=== PATIENT | female | born 1940 | race Caucasian/White ===

== ENCOUNTER 2017-11-21 16:49 | Inpatient (IN) | payer MEDICARE ==
[~2017-11-21] VITALS: Ht 162.6 cm; Wt 79.5 kg
[~2017-11-21 16:49] MED LIST: METO-408 PO
[2017-11-21] MEDS ORDERED: METOPROLOL TARTRATE 5 MG/5 ML VIAL IVP ONE (17:15)
[2017-11-21 17:18] LABS: BASOPHILS % (AUTO) 0.3 % (0.0-2.0); EOSINOPHILS % (AUTO) 0.1 % (1.0-6.0); HEMATOCRIT 40.7 % (36-46); HEMOGLOBIN 13.4 g/dL (12.0-16.0); LYMPHOCYTES # (AUTO) 0.9 K/uL (1.0-4.8); LYMPHOCYTES % (AUTO) 11.7 % (22.0-44.0); MEAN CORPUSCULAR HEMOGLOBIN 27.9 pg (26.0-34.0); MEAN CORPUSCULAR VOLUME 85 fL (80-100); MONOCYTES # (AUTO) 0.6 K/uL (0.1-1.0); MONOCYTES % (AUTO) 7.4 % (2.0-9.0); NEUTROPHILS # (AUTO) 6.5 K/uL (1.8-7.7); NEUTROPHILS % (AUTO) 80.5 % (40.0-70.0); PLATELET COUNT (AUTO) 196 K/uL (150-450); RED BLOOD CELL COUNT(AUTO) 4.81 MIL/uL (4.00-5.20); RED CELL DISTRIBUTION WIDTH 15.4 % (11.5-14.5)
[2017-11-21 17:27] LABS: ANION GAP 6 mmol/L (8-16); CALCIUM, TOTAL 8.7 mg/dL (8.8-10.5); CARBON DIOXIDE 30 mmol/L (22-29); CHLORIDE 108 mmol/L (98-107); GLOMERULAR FILTR. RATE CALC 40 mL/min (>60); GLUCOSE,RANDOM 104 mg/dL (70-110); POTASSIUM 4.7 mmol/L (3.5-5.1); SODIUM SERUM 144 mmol/L (136-145); UREA NITROGEN, BLOOD 24 mg/dL (7-18)
[2017-11-21 17:34] LABS: ALANINE AMINOTRANSFERASE 19 U/L (12-78); ALBUMIN 3.6 g/dL (3.4-5.0); ALKALINE PHOSPHATASE 107 U/L (46-116); ASPARTATE AMINOTRANSFERASE 18 U/L (15-37); BILIRUBIN,TOTAL 0.3 mg/dL (0.1-1.0); CREATINE KINASE, TOTAL 64 U/L (26-192); TOTAL PROTEIN, SERUM 7.3 g/dL (6.4-8.2)
[2017-11-21 17:35] LABS: B-TYPE NATRIURETIC PEPTIDE 433 pg/mL (0-100)
[2017-11-21] MEDS ORDERED: ONDANSETRON HCL 4 MG/2 ML VIAL IVP PRN (18:15)
[2017-11-21] MEDS ORDERED: ACETAMINOPHEN 325 MG TABLET PO PRN (18:15)
[2017-11-21] MEDS ORDERED: 0.9% SODIUM CHLORIDE 10 ML SYRINGE IVP PRN (18:15)
[2017-11-21 19:38] VITALS: BP 147/73
[2017-11-21 21:06] LABS: APPEARANCE,URINE CLOUDY (CLEAR); BILIRUBIN,URINE NEGATIVE (NEGATIVE); GLUCOSE, URINE (UA) NEGATIVE (NEGATIVE); KETONES,URINE NEGATIVE (NEGATIVE); LEUKOCYTE ESTERASE ,URINE TRACE (NEGATIVE); NITRATE,URINE NEGATIVE (NEGATIVE); OCCULT BLOOD,URINE NEGATIVE (NEGATIVE); PROTEIN,URINE NEGATIVE (NEGATIVE); UROBILINOGEN,URINE 0.2 mg/dL (<=1.0)
[2017-11-21] MEDS ORDERED: GABA-531 PO (21:07)
[2017-11-21] MEDS ORDERED: AMLO-511 PO (21:07)
[2017-11-21] MEDS ORDERED: LISI-661 PO (21:07)
[2017-11-21 21:16] LABS: BACTERIA,URINE Many /HPF (None Seen); RBC,URINE 0-2 /HPF (0-2); SQUAMOUS EPITHELIAL CELL,UR Few /LPF (None Seen)
[2017-11-21] MEDS ORDERED: IPRATROPIUM BROMIDE 0.5 MG/2.5 ML NEB SOLUTION NEB PRN (22:00)
[2017-11-21] MEDS ORDERED: ALBUTEROL SULFATE 2.5 MG/0.5 ML NEB SOLUTION NEB PRN (22:00)
[2017-11-21] MEDS: PROMETHAZINE HCL/CODEINE 6.25-10MG/5ML SYRUP UDCUP PO PRN (22:32)
[2017-11-21 23:58] VITALS: BP 143/69
[2017-11-22] VITALS (7 sets, daily range): BP systolic 111–158; BP diastolic 62–96
[2017-11-22] MEDS: HEPARIN SODIUM,PORCINE 5,000 UNITS/ML VIAL SQ SCH ×3 (00:32→16:12)
[2017-11-22] MEDS: METOPROLOL TARTRATE 5 MG/5 ML VIAL IVP PRN ×3 (00:33→14:32)
[2017-11-22] MEDS: CefTRIAXone SODIUM 1 GM in DEXTROSE 5%-WATER 10 ML IV SCH (00:33)
[2017-11-22 05:59] LABS: BASOPHILS % (AUTO) 0.1 % (0.0-2.0); EOSINOPHILS % (AUTO) 0.1 % (1.0-6.0); HEMOGLOBIN 14.5 g/dL (12.0-16.0); LYMPHOCYTES % (AUTO) 12.7 % (22.0-44.0); MEAN CORPUSCULAR HEMOGLOBIN 28.4 pg (26.0-34.0); MEAN CORPUSCULAR HGB CONC 33.8 G/dL (31.0-37.0); MEAN CORPUSCULAR VOLUME 84 fL (80-100); MONOCYTES # (AUTO) 0.4 K/uL (0.1-1.0); MONOCYTES % (AUTO) 5.4 % (2.0-9.0); NEUTROPHILS # (AUTO) 6.6 K/uL (1.8-7.7); NEUTROPHILS % (AUTO) 81.7 % (40.0-70.0); PLATELET COUNT (AUTO) 187 K/uL (150-450); RED BLOOD CELL COUNT(AUTO) 5.11 MIL/uL (4.00-5.20); RED CELL DISTRIBUTION WIDTH 15.3 % (11.5-14.5)
[2017-11-22] MEDS: PROMETHAZINE HCL/CODEINE 6.25-10MG/5ML SYRUP UDCUP PO PRN ×2 (06:37→20:49)
[2017-11-22 06:44] LABS: ALBUMIN 3.5 g/dL (3.4-5.0); BILIRUBIN,TOTAL 0.4 mg/dL (0.1-1.0); CALCIUM, TOTAL 8.9 mg/dL (8.8-10.5); CREATININE 1.15 mg/dL (0.60-1.30); POTASSIUM 4.4 mmol/L (3.5-5.1); TOTAL PROTEIN, SERUM 7.3 g/dL (6.4-8.2)
[2017-11-22] MEDS: AmLODIPine BESYLATE 5 MG TABLET PO SCH (08:11)
[2017-11-22] MEDS: METOPROLOL SUCCINATE 25 MG ER TABLET PO SCH (08:11)
[2017-11-22] MEDS: GABAPENTIN 300 MG CAPSULE PO SCH ×3 (08:11→20:49)
[2017-11-22] MEDS: LISINOPRIL 10 MG TABLET PO SCH (09:40)
[2017-11-22] MEDS: ACETAMINOPHEN 325 MG TABLET PO PRN ×2 (09:43→14:32)
[2017-11-23] MEDS: HEPARIN SODIUM,PORCINE 5,000 UNITS/ML VIAL SQ SCH ×4 (00:56→23:57)
[2017-11-23] MEDS: CefTRIAXone SODIUM 1 GM in DEXTROSE 5%-WATER 10 ML IV SCH ×2 (00:56→23:57)
[2017-11-23 04:10] VITALS: BP 141/88
[2017-11-23 06:28] LABS: BASOPHILS % (AUTO) 0.2 % (0.0-2.0); EOSINOPHILS % (AUTO) 0.1 % (1.0-6.0); HEMOGLOBIN 14.1 g/dL (12.0-16.0); LYMPHOCYTES % (AUTO) 15.9 % (22.0-44.0); MEAN CORPUSCULAR HEMOGLOBIN 28.2 pg (26.0-34.0); MEAN CORPUSCULAR HGB CONC 33.6 G/dL (31.0-37.0); MEAN CORPUSCULAR VOLUME 84 fL (80-100); MONOCYTES # (AUTO) 0.4 K/uL (0.1-1.0); MONOCYTES % (AUTO) 6.8 % (2.0-9.0); NEUTROPHILS # (AUTO) 4.8 K/uL (1.8-7.7); PLATELET COUNT (AUTO) 175 K/uL (150-450); RED CELL DISTRIBUTION WIDTH 15.1 % (11.5-14.5)
[2017-11-23 06:30] LABS: HEMOGLOBIN A1C 5.6 % (4.5-6.2)
[2017-11-23 06:39] LABS: CALCIUM, TOTAL 8.7 mg/dL (8.8-10.5); CHOL/HDL RATIO 3.6 (3.9-5.7); CREATININE 1.1 mg/dL (0.60-1.30); MAGNESIUM 2.2 mg/dL (1.80-2.40); POTASSIUM 4.1 mmol/L (3.5-5.1); THYROID STIMULATING HORMONE 2.08 uIU/mL (0.36-3.74)
[2017-11-23 07:40] VITALS: BP 132/82
[2017-11-23] MEDS: LISINOPRIL 10 MG TABLET PO SCH (08:21)
[2017-11-23] MEDS: AmLODIPine BESYLATE 5 MG TABLET PO SCH (08:21)
[2017-11-23] MEDS: METOPROLOL SUCCINATE 25 MG ER TABLET PO SCH (08:21)
[2017-11-23] MEDS: GABAPENTIN 300 MG CAPSULE PO SCH ×3 (08:21→21:07)
[2017-11-23] MEDS: PROMETHAZINE HCL/CODEINE 6.25-10MG/5ML SYRUP UDCUP PO PRN (08:28)
[2017-11-23 12:04] VITALS: BP 147/83
[2017-11-23] MEDS: METOPROLOL TARTRATE 5 MG/5 ML VIAL IVP PRN ×3 (12:44→23:58)
[2017-11-23 15:24] VITALS: BP 113/75
[2017-11-23 19:43] VITALS: BP 146/74
[2017-11-23] MEDS: METOPROLOL SUCCINATE 50 MG ER TABLET PO SCH (21:07)
[2017-11-23 23:07] VITALS: BP 139/67
[2017-11-24 04:08] VITALS: BP 139/96
[2017-11-24 06:55] LABS: ANION GAP 3 mmol/L (8-16); CALCIUM, TOTAL 8.7 mg/dL (8.8-10.5); CARBON DIOXIDE 34 mmol/L (22-29); CHLORIDE 107 mmol/L (98-107); CREATINE KINASE, TOTAL 40 U/L (26-192); CREATININE 1.21 mg/dL (0.60-1.30); GLOMERULAR FILTR. RATE CALC 43 mL/min (>60); GLUCOSE,RANDOM 99 mg/dL (70-110); POTASSIUM 5.1 mmol/L (3.5-5.1); SODIUM SERUM 144 mmol/L (136-145); UREA NITROGEN, BLOOD 22 mg/dL (7-18)
[2017-11-24 07:12] VITALS: BP 140/78
[2017-11-24 07:54] LABS: B-TYPE NATRIURETIC PEPTIDE 753 pg/mL (0-100)
[2017-11-24] MEDS: METOPROLOL SUCCINATE 50 MG ER TABLET PO SCH (08:39)
[2017-11-24] MEDS: HEPARIN SODIUM,PORCINE 5,000 UNITS/ML VIAL SQ SCH ×3 (08:39→23:47)
[2017-11-24] MEDS: GABAPENTIN 300 MG CAPSULE PO SCH ×3 (08:39→20:57)
[2017-11-24 11:10] VITALS: BP 134/68
[2017-11-24 15:34] VITALS: BP 132/74
[2017-11-24 19:36] VITALS: BP 129/92
[2017-11-24] MEDS: CARVEDILOL 25 MG TABLET PO SCH (20:57)
[2017-11-24] MEDS: ACETAMINOPHEN 325 MG TABLET PO PRN (21:00)
[2017-11-24] MEDS: PROMETHAZINE HCL/CODEINE 6.25-10MG/5ML SYRUP UDCUP PO PRN (23:47)
[2017-11-24] MEDS: CefTRIAXone SODIUM 1 GM in DEXTROSE 5%-WATER 10 ML IV SCH (23:47)
[2017-11-24 23:59] VITALS: BP 131/59
[2017-11-25 05:32] VITALS: BP 125/62
[2017-11-25 07:05] LABS: ANION GAP 7 mmol/L (8-16); CALCIUM, TOTAL 8.8 mg/dL (8.8-10.5); CARBON DIOXIDE 29 mmol/L (22-29); CHLORIDE 107 mmol/L (98-107); CREATINE KINASE, TOTAL 33 U/L (26-192); GLOMERULAR FILTR. RATE CALC 43 mL/min (>60); GLUCOSE,RANDOM 97 mg/dL (70-110); POTASSIUM 4.4 mmol/L (3.5-5.1); SODIUM SERUM 143 mmol/L (136-145); THYROID STIMULATING HORMONE 1.48 uIU/mL (0.36-3.74); UREA NITROGEN, BLOOD 26 mg/dL (7-18)
[2017-11-25 07:26] VITALS: BP 125/57
[2017-11-25 07:46] LABS: B-TYPE NATRIURETIC PEPTIDE 843 pg/mL (0-100)
[2017-11-25] MEDS: HEPARIN SODIUM,PORCINE 5,000 UNITS/ML VIAL SQ SCH ×2 (08:03→15:16)
[2017-11-25] MEDS: GABAPENTIN 300 MG CAPSULE PO SCH ×3 (08:04→20:24)
[2017-11-25] MEDS: CARVEDILOL 25 MG TABLET PO SCH ×2 (08:04→20:24)
[2017-11-25 11:12] VITALS: BP 130/68
[2017-11-25 15:36] VITALS: BP 132/76
[2017-11-25] MEDS: FUROSEMIDE 20 MG/2 ML VIAL IVP SCH (16:09)
[2017-11-25 19:42] VITALS: BP 123/73
[2017-11-25] MEDS: OXYGEN THERAPY IH SCH (20:18)
[2017-11-25] MEDS: PROMETHAZINE HCL/CODEINE 6.25-10MG/5ML SYRUP UDCUP PO PRN (23:17)
[2017-11-25 23:23] VITALS: BP 121/76
[2017-11-26] MEDS: CefTRIAXone SODIUM 1 GM in DEXTROSE 5%-WATER 10 ML IV SCH (00:29)
[2017-11-26] MEDS: FUROSEMIDE 20 MG/2 ML VIAL IVP SCH ×3 (00:30→21:00)
[2017-11-26] MEDS: HEPARIN SODIUM,PORCINE 5,000 UNITS/ML VIAL SQ SCH ×3 (00:30→16:23)
[2017-11-26 04:05] VITALS: BP 113/73
[2017-11-26 07:33] VITALS: BP 118/68
[2017-11-26] MEDS: OXYGEN THERAPY IH SCH ×2 (08:06→21:08)
[2017-11-26] MEDS: CARVEDILOL 25 MG TABLET PO SCH ×2 (08:18→21:08)
[2017-11-26] MEDS: GABAPENTIN 300 MG CAPSULE PO SCH ×3 (08:18→21:08)
[2017-11-26 14:05] VITALS: BP 101/43
[2017-11-26 21:00] VITALS: BP 104/68
[2017-11-26 23:30] VITALS: BP 106/70
[2017-11-27] VITALS (7 sets, daily range): BP systolic 99–128; BP diastolic 45–77
[2017-11-27] MEDS: CefTRIAXone SODIUM 1 GM in DEXTROSE 5%-WATER 10 ML IV SCH (01:02)
[2017-11-27] MEDS: HEPARIN SODIUM,PORCINE 5,000 UNITS/ML VIAL SQ SCH ×3 (01:02→16:28)
[2017-11-27 07:12] LABS: HEMATOCRIT 43.4 % (36-46); HEMOGLOBIN 14.4 g/dL (12.0-16.0); MEAN CORPUSCULAR HEMOGLOBIN 28.2 pg (26.0-34.0); MEAN CORPUSCULAR HGB CONC 33.2 G/dL (31.0-37.0); MEAN CORPUSCULAR VOLUME 85 fL (80-100); PLATELET COUNT (AUTO) 184 K/uL (150-450); RED BLOOD CELL COUNT(AUTO) 5.12 MIL/uL (4.00-5.20); RED CELL DISTRIBUTION WIDTH 14.9 % (11.5-14.5)
[2017-11-27 07:24] LABS: CALCIUM, TOTAL 8.8 mg/dL (8.8-10.5); CREATININE 1.85 mg/dL (0.60-1.30); POTASSIUM 4.6 mmol/L (3.5-5.1)
[2017-11-27] MEDS: FUROSEMIDE 20 MG/2 ML VIAL IVP SCH ×2 (08:18→20:09)
[2017-11-27] MEDS: OXYGEN THERAPY IH SCH ×2 (08:18→20:12)
[2017-11-27] MEDS: GABAPENTIN 300 MG CAPSULE PO SCH ×3 (08:18→20:10)
[2017-11-27] MEDS: CARVEDILOL 25 MG TABLET PO SCH ×3 (08:24→20:10)
[2017-11-27 08:41] LABS: BAND NEUTROPHILS % (MANUAL) 1 % (0-5); LYMPHOCYTES % (MANUAL) 19 % (22-44); MONOCYTES % (MANUAL) 2 % (2-9); SEGMENTED NEUTROPHILS % 78 % (40-70)
[2017-11-27] MEDS ORDERED: NITROGLYCERIN 0.4 MG SUBLINGUAL TABLET #25 SL PRN (15:30)
[2017-11-27] MEDS: ATORVASTATIN CALCIUM 40 MG TABLET PO SCH (16:19)
[2017-11-28] VITALS (16 sets, daily range): BP systolic 95–128; BP diastolic 49–77
[2017-11-28] MEDS: HEPARIN SODIUM,PORCINE 5,000 UNITS/ML VIAL SQ SCH ×4 (00:51→23:38)
[2017-11-28] MEDS: CefTRIAXone SODIUM 1 GM in DEXTROSE 5%-WATER 10 ML IV SCH ×2 (00:52→23:38)
[2017-11-28 01:10] LABS: APPEARANCE,URINE CLEAR (CLEAR); BILIRUBIN,URINE NEGATIVE (NEGATIVE); GLUCOSE, URINE (UA) NEGATIVE (NEGATIVE); KETONES,URINE NEGATIVE (NEGATIVE); LEUKOCYTE ESTERASE ,URINE NEGATIVE (NEGATIVE); NITRATE,URINE NEGATIVE (NEGATIVE); OCCULT BLOOD,URINE NEGATIVE (NEGATIVE); PH,URINE 5.5 (5.0-8.0); PROTEIN,URINE NEGATIVE (NEGATIVE); UROBILINOGEN,URINE 0.2 mg/dL (<=1.0)
[2017-11-28 01:25] LABS: BACTERIA,URINE Rare /HPF (None Seen); RBC,URINE 0-2 /HPF (0-2); SQUAMOUS EPITHELIAL CELL,UR Few /LPF (None Seen); WBC,URINE 0-2 /HPF (0-5)
[2017-11-28 06:38] LABS: BASOPHILS % (AUTO) 0.2 % (0.0-2.0); EOSINOPHILS % (AUTO) 0 % (1.0-6.0); HEMATOCRIT 41.4 % (36-46); HEMOGLOBIN 13.7 g/dL (12.0-16.0); LYMPHOCYTES # (AUTO) 0.8 K/uL (1.0-4.8); LYMPHOCYTES % (AUTO) 10.4 % (22.0-44.0); MEAN CORPUSCULAR HGB CONC 33.2 G/dL (31.0-37.0); MEAN CORPUSCULAR VOLUME 84 fL (80-100); MONOCYTES # (AUTO) 0.6 K/uL (0.1-1.0); MONOCYTES % (AUTO) 7.8 % (2.0-9.0); NEUTROPHILS # (AUTO) 6.6 K/uL (1.8-7.7); NEUTROPHILS % (AUTO) 81.6 % (40.0-70.0); PLATELET COUNT (AUTO) 158 K/uL (150-450); RED BLOOD CELL COUNT(AUTO) 4.91 MIL/uL (4.00-5.20); RED CELL DISTRIBUTION WIDTH 14.8 % (11.5-14.5)
[2017-11-28 06:51] LABS: ANION GAP 4 mmol/L (8-16); CALCIUM, TOTAL 8.4 mg/dL (8.8-10.5); CARBON DIOXIDE 33 mmol/L (22-29); CHLORIDE 104 mmol/L (98-107); CREATINE KINASE, TOTAL 51 U/L (26-192); CREATININE 1.66 mg/dL (0.60-1.30); GLOMERULAR FILTR. RATE CALC 30 mL/min (>60); GLUCOSE,RANDOM 91 mg/dL (70-110); POTASSIUM 5.2 mmol/L (3.5-5.1); SODIUM SERUM 141 mmol/L (136-145); UREA NITROGEN, BLOOD 54 mg/dL (7-18)
[2017-11-28] MEDS ORDERED: HEPARIN SODIUM 1000 UNITS/NS 1,000 ML ONE (07:50)
[2017-11-28] MEDS ORDERED: SODIUM BICARBONATE 50 MEQ/50 ML VIAL ONE (07:50)
[2017-11-28] MEDS ORDERED: LIDOCAINE HCL/PF 1% 30 ML VIAL ONE (07:50)
[2017-11-28] MEDS ORDERED: IOHEXOL 300 MG/ML 150 ML VIAL ONE (07:50)
[2017-11-28] MEDS ORDERED: DiphenhydrAMINE HCL 50 MG/ML VIAL IVP SCH (08:15)
[2017-11-28] MEDS ORDERED: ASPIRIN 325 MG TABLET PO SCH (08:15)
[2017-11-28] MEDS ORDERED: FentaNYL CITRATE-PF 100 MCG/2 ML VIAL ONE (08:34)
[2017-11-28] MEDS ORDERED: MIDAZOLAM HCL 2 MG/2 ML VIAL ONE (08:34)
[2017-11-28] MEDS: CARVEDILOL 25 MG TABLET PO SCH ×3 (09:00→20:41)
[2017-11-28] MEDS ORDERED: HEPARIN SODIUM 1000 UNITS/NS 1,000 ML IARTER ONE (09:14)
[2017-11-28] MEDS ORDERED: SODIUM CHLORIDE 0.9% 500 ML IV ONE (09:14)
[2017-11-28] MEDS ORDERED: FentaNYL CITRATE-PF 100 MCG/2 ML VIAL IVP ONE (09:15)
[2017-11-28] MEDS ORDERED: LIDOCAINE 1% 30 ML/SOD BICARB 8.4% 4 ML SQ ONE (09:15)
[2017-11-28] MEDS ORDERED: IOHEXOL 300 MG/ML 150 ML VIAL IARTER ONE (09:15)
[2017-11-28] MEDS ORDERED: MIDAZOLAM HCL 2 MG/2 ML VIAL IVP ONE (09:15)
[2017-11-28] MEDS: FUROSEMIDE 20 MG/2 ML VIAL IVP SCH ×2 (10:29→20:41)
[2017-11-28] MEDS: ATORVASTATIN CALCIUM 40 MG TABLET PO SCH (10:29)
[2017-11-28] MEDS: ACETAMINOPHEN 325 MG TABLET PO PRN (10:29)
[2017-11-28] MEDS: GABAPENTIN 300 MG CAPSULE PO SCH ×3 (10:29→20:41)
[2017-11-28] MEDS: OXYGEN THERAPY IH SCH (10:31)
[2017-11-28 13:08] LABS: GLUCOMETER DEV NAME(LOC) 5N 2S; GLUCOSE,POINT OF CARE 96 MG/DL (70-110)
[2017-11-29 04:49] VITALS: BP 120/59
[2017-11-29 06:29] LABS: BASOPHILS % (AUTO) 0.1 % (0.0-2.0); EOSINOPHILS % (AUTO) 0.1 % (1.0-6.0); HEMOGLOBIN 14.1 g/dL (12.0-16.0); LYMPHOCYTES # (AUTO) 0.8 K/uL (1.0-4.8); LYMPHOCYTES % (AUTO) 10.5 % (22.0-44.0); MEAN CORPUSCULAR HEMOGLOBIN 28.4 pg (26.0-34.0); MEAN CORPUSCULAR HGB CONC 33.7 G/dL (31.0-37.0); MEAN CORPUSCULAR VOLUME 84 fL (80-100); MONOCYTES # (AUTO) 0.5 K/uL (0.1-1.0); MONOCYTES % (AUTO) 6.8 % (2.0-9.0); NEUTROPHILS # (AUTO) 6.2 K/uL (1.8-7.7); NEUTROPHILS % (AUTO) 82.5 % (40.0-70.0); PLATELET COUNT (AUTO) 162 K/uL (150-450); RED BLOOD CELL COUNT(AUTO) 4.98 MIL/uL (4.00-5.20); RED CELL DISTRIBUTION WIDTH 14.7 % (11.5-14.5)
[2017-11-29 06:55] LABS: CALCIUM, TOTAL 8.7 mg/dL (8.8-10.5); CREATININE 1.55 mg/dL (0.60-1.30); MAGNESIUM 2.6 mg/dL (1.80-2.40); POTASSIUM 4.2 mmol/L (3.5-5.1)
[2017-11-29 07:49] VITALS: BP 143/61
[2017-11-29] MEDS: FUROSEMIDE 20 MG/2 ML VIAL IVP SCH (09:20)
[2017-11-29] MEDS: HEPARIN SODIUM,PORCINE 5,000 UNITS/ML VIAL SQ SCH (09:20)
[2017-11-29] MEDS: CARVEDILOL 25 MG TABLET PO SCH (09:21)
[2017-11-29] MEDS: ATORVASTATIN CALCIUM 40 MG TABLET PO SCH (09:21)
[2017-11-29] MEDS: GABAPENTIN 300 MG CAPSULE PO SCH (09:21)
[2017-11-29] MEDS: OXYGEN THERAPY IH SCH ×2 (09:24→09:41)
[2017-11-29 11:36] VITALS: BP 111/60
[2017-11-29] MEDS ORDERED: KDUR10 PO (11:57)
[2017-11-29] MEDS ORDERED: GABA-531 PO (11:58)
[2017-11-29] MEDS ORDERED: ASPI-1182 PO (11:58)
[2017-11-29] MEDS ORDERED: CARV12 PO (11:58)
[2017-11-29] MEDS ORDERED: FURO20 PO (11:58)
[2017-11-29 15:11] VITALS: BP 116/58
[2017-11-29 15:15] VITALS: BP 116/55
== END 2017-11-29 16:30 | disposition home or self-care (01) | DRG 286 ==
LOC: EMS 16:50 → 5S 18:23 → 5N 11-28 06:00
PROVIDERS: ADMIT Family Medicine; ATTEND Family Medicine
PROC: 4A023N8 Measurement of Cardiac Sampling and Pressure, Bilateral, Percutaneous Approach (ICD-10-PCS; principal; 2017-11-28)
PROC: B2111ZZ Fluoroscopy of Multiple Coronary Arteries using Low Osmolar Contrast (ICD-10-PCS; 2017-11-28)
PROC: B2151ZZ Fluoroscopy of Left Heart using Low Osmolar Contrast (ICD-10-PCS; 2017-11-28)
DX: I48.91 Unspecified atrial fibrillation (principal); I50.23 Acute on chronic systolic (congestive) heart failure; I42.0 Dilated cardiomyopathy; F03.90 Unspecified dementia, unspecified severity, without behavioral disturbance, psychotic disturbance, mood disturbance, and anxiety; I13.0 Hypertensive heart and chronic kidney disease with heart failure and stage 1 through stage 4 chronic kidney disease, or unspecified chronic kidney disease; I25.10 Atherosclerotic heart disease of native coronary artery without angina pectoris; M19.90 Unspecified osteoarthritis, unspecified site; N18.9 Chronic kidney disease, unspecified; Z87.440 Personal history of urinary (tract) infections; Z91.19 Patient's noncompliance with other medical treatment and regimen
CPT/HCPCS: 83036; 83735; 84443; 85007; 87086; 93005; 93306; 93460; 96374; 97116; 97162; 97530; 99285; J0696; J1200; J1644; J1940; J2250; J3010; J3490; J7060; Q9967

== ENCOUNTER 2017-12-11 08:50 | Inpatient (IN) | payer MEDICARE ==
[~2017-12-11] VITALS: Ht 160 cm; Wt 79.6 kg
[~2017-12-11 08:50] MED LIST changes: +ASPI-1182 PO; +CARV12 PO; +FURO20 PO; +GABA-531 PO; +KDUR10 PO; -METO-408 PO
[2017-12-11] MEDS ORDERED: OMEP20 PO (09:04)
[2017-12-11] MEDS ORDERED: B CO1TAB7 PO (09:04)
[2017-12-11] MEDS ORDERED: LISI-661 PO (09:04)
[2017-12-11] MEDS ORDERED: HYDR25TA PO (09:04)
[2017-12-11] MEDS ORDERED: AMLO-511 PO (09:04)
[2017-12-11] MEDS ORDERED: DONE5TAB5 PO (09:04)
[2017-12-11] MEDS ORDERED: METO25 PO (09:04)
[2017-12-11] MEDS ORDERED: ESOM20CA39 PO (09:04)
[2017-12-11] MEDS ORDERED: ASPI-989 PO (09:04)
[2017-12-11] MEDS ORDERED: DILTIAZEM HCL 5 MG/ML 5 ML VIAL IVP ONE ×2 (09:15→16:30)
[2017-12-11 09:51] LABS: BASOPHILS % (AUTO) 0.2 % (0.0-2.0); EOSINOPHILS % (AUTO) 0 % (1.0-6.0); HEMATOCRIT 40.9 % (36-46); HEMOGLOBIN 13.8 g/dL (12.0-16.0); LYMPHOCYTES # (AUTO) 0.6 K/uL (1.0-4.8); LYMPHOCYTES % (AUTO) 5.8 % (22.0-44.0); MEAN CORPUSCULAR HEMOGLOBIN 28.4 pg (26.0-34.0); MEAN CORPUSCULAR HGB CONC 33.7 G/dL (31.0-37.0); MEAN CORPUSCULAR VOLUME 84 fL (80-100); MONOCYTES # (AUTO) 0.6 K/uL (0.1-1.0); MONOCYTES % (AUTO) 5.4 % (2.0-9.0); NEUTROPHILS # (AUTO) 9.4 K/uL (1.8-7.7); PLATELET COUNT (AUTO) 167 K/uL (150-450); RED BLOOD CELL COUNT(AUTO) 4.85 MIL/uL (4.00-5.20)
[2017-12-11 09:53] LABS: NEUTROPHILS % (AUTO) 88.6 % (40.0-70.0)
[2017-12-11 09:57] LABS: ANION GAP 8 mmol/L (8-16); CALCIUM, TOTAL 8.5 mg/dL (8.8-10.5); CARBON DIOXIDE 29 mmol/L (22-29); CHLORIDE 110 mmol/L (98-107); CREATININE 1.19 mg/dL (0.60-1.30); GLOMERULAR FILTR. RATE CALC 44 mL/min (>60); GLUCOSE,RANDOM 107 mg/dL (70-110); POTASSIUM 4.3 mmol/L (3.5-5.1); SODIUM SERUM 147 mmol/L (136-145); UREA NITROGEN, BLOOD 16 mg/dL (7-18)
[2017-12-11 10:04] LABS: ALANINE AMINOTRANSFERASE 57 U/L (12-78); ALBUMIN 3.4 g/dL (3.4-5.0); ALKALINE PHOSPHATASE 102 U/L (46-116); ASPARTATE AMINOTRANSFERASE 55 U/L (15-37); BILIRUBIN,TOTAL 0.6 mg/dL (0.1-1.0); CREATINE KINASE, TOTAL 46 U/L (26-192); TOTAL PROTEIN, SERUM 7.2 g/dL (6.4-8.2)
[2017-12-11 10:05] LABS: PROTHROMBIN TIME 10.4 SEC (9.4-11.6)
[2017-12-11 10:16] LABS: B-TYPE NATRIURETIC PEPTIDE 1460 pg/mL (0-100)
[2017-12-11] MEDS ORDERED: FUROSEMIDE 40 MG/4 ML VIAL IVP ONE (10:30)
[2017-12-11] MEDS ORDERED: ONDANSETRON HCL 4 MG/2 ML VIAL IVP PRN (11:15)
[2017-12-11] MEDS ORDERED: ACETAMINOPHEN 325 MG TABLET PO PRN (11:15)
[2017-12-11] MEDS ORDERED: DILTIAZEM HCL 125 MG in DEXTROSE 5%-WATER 100 ML IV SCH (16:30)
[2017-12-11 17:28] VITALS: BP 174/94
[2017-12-11] MEDS: CARVEDILOL 25 MG TABLET PO SCH ×2 (18:24→21:59)
[2017-12-11] MEDS ORDERED: CARV12 PO (18:31)
[2017-12-11] MEDS ORDERED: FURO20 PO (18:31)
[2017-12-11 20:14] VITALS: BP 116/71
[2017-12-11] MEDS ORDERED: FUROSEMIDE 20 MG TABLET PO SCH (21:00)
[2017-12-11] MEDS: FUROSEMIDE 20 MG/2 ML VIAL IVP SCH (21:58)
[2017-12-11] MEDS: GABAPENTIN 300 MG CAPSULE PO SCH (22:00)
[2017-12-11] MEDS: DONEPEZIL HCL 5 MG TABLET PO SCH (22:10)
[2017-12-11 23:37] VITALS: BP 126/60
[2017-12-12 04:01] VITALS: BP 124/74
[2017-12-12 06:43] LABS: BASOPHILS % (AUTO) 0.2 % (0.0-2.0); EOSINOPHILS % (AUTO) 0.1 % (1.0-6.0); HEMATOCRIT 40.1 % (36-46); HEMOGLOBIN 13.5 g/dL (12.0-16.0); LYMPHOCYTES # (AUTO) 0.7 K/uL (1.0-4.8); LYMPHOCYTES % (AUTO) 9.8 % (22.0-44.0); MEAN CORPUSCULAR HEMOGLOBIN 28.5 pg (26.0-34.0); MEAN CORPUSCULAR HGB CONC 33.7 G/dL (31.0-37.0); MEAN CORPUSCULAR VOLUME 85 fL (80-100); MONOCYTES # (AUTO) 0.4 K/uL (0.1-1.0); MONOCYTES % (AUTO) 6.2 % (2.0-9.0); NEUTROPHILS % (AUTO) 83.7 % (40.0-70.0); PLATELET COUNT (AUTO) 148 K/uL (150-450); RED BLOOD CELL COUNT(AUTO) 4.74 MIL/uL (4.00-5.20); RED CELL DISTRIBUTION WIDTH 15.3 % (11.5-14.5)
[2017-12-12 06:57] LABS: CALCIUM, TOTAL 8.9 mg/dL (8.8-10.5); CREATININE 1.25 mg/dL (0.60-1.30); POTASSIUM 3.5 mmol/L (3.5-5.1)
[2017-12-12 07:10] VITALS: BP 139/64
[2017-12-12] MEDS: GABAPENTIN 300 MG CAPSULE PO SCH ×3 (08:52→20:36)
[2017-12-12] MEDS: OMEPRAZOLE 20 MG CAPSULE PO SCH (08:52)
[2017-12-12] MEDS: ACETAMINOPHEN 325 MG TABLET PO PRN (08:53)
[2017-12-12] MEDS: CARVEDILOL 25 MG TABLET PO SCH ×2 (08:53→20:36)
[2017-12-12] MEDS: FUROSEMIDE 20 MG/2 ML VIAL IVP SCH ×2 (08:53→20:36)
[2017-12-12] MEDS: ASPIRIN 81 MG CHEWABLE TABLET PO SCH (08:54)
[2017-12-12] MEDS: HEPARIN SODIUM,PORCINE 5,000 UNITS/ML VIAL SQ SCH ×3 (08:54→16:56)
[2017-12-12] MEDS ORDERED: GABAPENTIN 300 MG CAPSULE PO SCH (09:00)
[2017-12-12 11:10] VITALS: BP 115/49
[2017-12-12 15:12] VITALS: BP 117/55
[2017-12-12 19:51] VITALS: BP 127/73
[2017-12-12] MEDS: DONEPEZIL HCL 5 MG TABLET PO SCH (20:36)
[2017-12-12 23:06] VITALS: BP 120/67
[2017-12-13] MEDS: HEPARIN SODIUM,PORCINE 5,000 UNITS/ML VIAL SQ SCH ×4 (00:31→23:10)
[2017-12-13 04:30] VITALS: BP 113/68
[2017-12-13 06:45] LABS: BASOPHILS % (AUTO) 0.3 % (0.0-2.0); EOSINOPHILS % (AUTO) 0.1 % (1.0-6.0); HEMATOCRIT 41.7 % (36-46); HEMOGLOBIN 14.1 g/dL (12.0-16.0); LYMPHOCYTES # (AUTO) 0.9 K/uL (1.0-4.8); LYMPHOCYTES % (AUTO) 14.3 % (22.0-44.0); MEAN CORPUSCULAR HEMOGLOBIN 28.4 pg (26.0-34.0); MEAN CORPUSCULAR HGB CONC 33.8 G/dL (31.0-37.0); MEAN CORPUSCULAR VOLUME 84 fL (80-100); MONOCYTES # (AUTO) 0.4 K/uL (0.1-1.0); MONOCYTES % (AUTO) 6.5 % (2.0-9.0); NEUTROPHILS # (AUTO) 4.8 K/uL (1.8-7.7); NEUTROPHILS % (AUTO) 78.8 % (40.0-70.0); PLATELET COUNT (AUTO) 163 K/uL (150-450); RED BLOOD CELL COUNT(AUTO) 4.97 MIL/uL (4.00-5.20); RED CELL DISTRIBUTION WIDTH 15.1 % (11.5-14.5)
[2017-12-13 07:24] VITALS: BP 126/73
[2017-12-13 07:27] LABS: CALCIUM, TOTAL 8.4 mg/dL (8.8-10.5); CHOL/HDL RATIO 4.1 (3.9-5.7); CREATININE 1.46 mg/dL (0.60-1.30); MAGNESIUM 2.1 mg/dL (1.80-2.40); POTASSIUM 3.6 mmol/L (3.5-5.1)
[2017-12-13] MEDS: GABAPENTIN 300 MG CAPSULE PO SCH ×3 (08:14→20:13)
[2017-12-13] MEDS: CARVEDILOL 25 MG TABLET PO SCH ×2 (08:14→20:15)
[2017-12-13] MEDS: FUROSEMIDE 20 MG/2 ML VIAL IVP SCH (08:14)
[2017-12-13] MEDS: ASPIRIN 81 MG CHEWABLE TABLET PO SCH (08:14)
[2017-12-13] MEDS: OMEPRAZOLE 20 MG CAPSULE PO SCH (08:14)
[2017-12-13] MEDS: ACETAMINOPHEN 325 MG TABLET PO PRN (09:52)
[2017-12-13 11:17] VITALS: BP 101/55
[2017-12-13 14:33] VITALS: BP 94/55
[2017-12-13 19:25] VITALS: BP 97/66
[2017-12-13] MEDS: DONEPEZIL HCL 5 MG TABLET PO SCH (20:13)
[2017-12-13 23:17] VITALS: BP 119/75
[2017-12-14] MEDS: ACETAMINOPHEN 325 MG TABLET PO PRN ×2 (03:58→16:48)
[2017-12-14 04:07] VITALS: BP 127/66
[2017-12-14 07:36] VITALS: BP 117/68
[2017-12-14] MEDS: OMEPRAZOLE 20 MG CAPSULE PO SCH (08:24)
[2017-12-14] MEDS: CARVEDILOL 25 MG TABLET PO SCH ×2 (08:24→20:33)
[2017-12-14] MEDS: ASPIRIN 81 MG CHEWABLE TABLET PO SCH (08:24)
[2017-12-14] MEDS: HEPARIN SODIUM,PORCINE 5,000 UNITS/ML VIAL SQ SCH ×3 (08:25→23:50)
[2017-12-14] MEDS: GABAPENTIN 300 MG CAPSULE PO SCH ×3 (08:25→20:34)
[2017-12-14] MEDS: FUROSEMIDE 40 MG/4 ML VIAL IVP SCH (08:25)
[2017-12-14 11:47] VITALS: BP 101/60
[2017-12-14 15:46] LABS: CREATINE KINASE, TOTAL 37 U/L (26-192)
[2017-12-14 16:38] VITALS: BP 109/86
[2017-12-14 19:18] VITALS: BP 116/65
[2017-12-14] MEDS: DONEPEZIL HCL 5 MG TABLET PO SCH (20:34)
[2017-12-14] MEDS: FUROSEMIDE 20 MG/2 ML VIAL IVP SCH (20:34)
[2017-12-15] VITALS: BP 122/76
[2017-12-15 04:00] VITALS: BP 108/74
[2017-12-15 07:28] VITALS: BP 124/75
[2017-12-15] MEDS: HEPARIN SODIUM,PORCINE 5,000 UNITS/ML VIAL SQ SCH ×2 (08:13→16:25)
[2017-12-15] MEDS: FUROSEMIDE 40 MG/4 ML VIAL IVP SCH (08:14)
[2017-12-15] MEDS: OMEPRAZOLE 20 MG CAPSULE PO SCH (08:14)
[2017-12-15] MEDS: GABAPENTIN 300 MG CAPSULE PO SCH ×3 (08:14→20:25)
[2017-12-15] MEDS: ACETAMINOPHEN 325 MG TABLET PO PRN (08:14)
[2017-12-15] MEDS: CARVEDILOL 25 MG TABLET PO SCH ×2 (08:14→20:25)
[2017-12-15] MEDS: ASPIRIN 81 MG CHEWABLE TABLET PO SCH (08:14)
[2017-12-15] MEDS: FUROSEMIDE 20 MG/2 ML VIAL IVP SCH (08:15)
[2017-12-15 11:24] VITALS: BP 108/56
[2017-12-15] MEDS ORDERED: MAGNESIUM HYDROXIDE SUSPENSION 30 ML UDCUP PO PRN (13:30)
[2017-12-15 15:34] VITALS: BP 121/67
[2017-12-15 19:11] VITALS: BP 125/56
[2017-12-15] MEDS: DONEPEZIL HCL 5 MG TABLET PO SCH (20:25)
[2017-12-16] VITALS (7 sets, daily range): BP systolic 104–145; BP diastolic 55–77
[2017-12-16] MEDS: HEPARIN SODIUM,PORCINE 5,000 UNITS/ML VIAL SQ SCH ×4 (00:32→23:55)
[2017-12-16 06:38] LABS: CALCIUM, TOTAL 8.7 mg/dL (8.8-10.5); CREATININE 1.52 mg/dL (0.60-1.30); MAGNESIUM 2.5 mg/dL (1.80-2.40); POTASSIUM 4.3 mmol/L (3.5-5.1)
[2017-12-16] MEDS: FUROSEMIDE 40 MG/4 ML VIAL IVP SCH (08:31)
[2017-12-16] MEDS: OMEPRAZOLE 20 MG CAPSULE PO SCH (08:38)
[2017-12-16] MEDS: GABAPENTIN 300 MG CAPSULE PO SCH ×3 (08:38→21:11)
[2017-12-16] MEDS: ASPIRIN 81 MG CHEWABLE TABLET PO SCH (08:38)
[2017-12-16] MEDS: CARVEDILOL 25 MG TABLET PO SCH ×2 (08:38→21:11)
[2017-12-16] MEDS: DONEPEZIL HCL 5 MG TABLET PO SCH (21:11)
[2017-12-17] VITALS (9 sets, daily range): BP systolic 98–145; BP diastolic 55–78
[2017-12-17] MEDS: HEPARIN SODIUM,PORCINE 5,000 UNITS/ML VIAL SQ SCH ×3 (08:00→23:41)
[2017-12-17] MEDS: FUROSEMIDE 40 MG/4 ML VIAL IVP SCH (08:17)
[2017-12-17] MEDS ORDERED: BENZOCAINE 20% 50 MCG/SPRAY 57 GM ONE (09:26)
[2017-12-17] MEDS: CARVEDILOL 25 MG TABLET PO SCH ×2 (12:21→20:23)
[2017-12-17] MEDS: ASPIRIN 81 MG CHEWABLE TABLET PO SCH (12:21)
[2017-12-17] MEDS: OMEPRAZOLE 20 MG CAPSULE PO SCH (12:21)
[2017-12-17] MEDS: GABAPENTIN 300 MG CAPSULE PO SCH ×3 (12:22→20:24)
[2017-12-17] MEDS: AMIODARONE HCL 200 MG TABLET PO SCH ×2 (16:11→23:41)
[2017-12-17] MEDS: DONEPEZIL HCL 5 MG TABLET PO SCH (20:24)
[2017-12-18 04:30] VITALS: BP 97/58
[2017-12-18] MEDS ORDERED: PROPOFOL 1% 20 ML VIAL IVP ONE (04:41)
[2017-12-18] MEDS ORDERED: LIDOCAINE HCL/PF 2% 5 ML VIAL IM ONE (04:41)
[2017-12-18] MEDS ORDERED: FentaNYL CITRATE-PF 100 MCG/2 ML VIAL IVP ONE (04:49)
[2017-12-18] MEDS ORDERED: MIDAZOLAM HCL 2 MG/2 ML VIAL IVP ONE (04:49)
[2017-12-18 07:30] VITALS: BP 100/43
[2017-12-18] MEDS: HEPARIN SODIUM,PORCINE 5,000 UNITS/ML VIAL SQ SCH ×2 (08:28→15:38)
[2017-12-18] MEDS: FUROSEMIDE 40 MG/4 ML VIAL IVP SCH (08:28)
[2017-12-18] MEDS: GABAPENTIN 300 MG CAPSULE PO SCH ×3 (10:02→21:28)
[2017-12-18] MEDS: ASPIRIN 81 MG CHEWABLE TABLET PO SCH (10:02)
[2017-12-18] MEDS: CARVEDILOL 25 MG TABLET PO SCH ×2 (10:02→17:40)
[2017-12-18] MEDS: OMEPRAZOLE 20 MG CAPSULE PO SCH (10:02)
[2017-12-18] MEDS: AMIODARONE HCL 200 MG TABLET PO SCH ×2 (10:02→21:32)
[2017-12-18 11:20] VITALS: BP 107/51
[2017-12-18] MEDS ORDERED: CARVEDILOL 12.5 MG TABLET PO ONE ×2 (12:45→17:30)
[2017-12-18] MEDS ORDERED: DIGOXIN 250 MCG/ML 2 ML AMP IVP ONE (14:00)
[2017-12-18] MEDS ORDERED: DIGOXIN 125 MCG TABLET PO ONE (15:00)
[2017-12-18 15:15] VITALS: BP 112/48
[2017-12-18] MEDS: DIGOXIN 250 MCG/ML 2 ML AMP IVP ONE ×2 (15:25→16:41)
[2017-12-18 20:17] VITALS: BP 105/45
[2017-12-18] MEDS: DONEPEZIL HCL 5 MG TABLET PO SCH (21:28)
[2017-12-19 00:01] VITALS: BP 122/44
[2017-12-19 04:10] VITALS: BP 124/57
[2017-12-19 06:31] LABS: BASOPHILS % (AUTO) 0.1 % (0.0-2.0); EOSINOPHILS % (AUTO) 0 % (1.0-6.0); HEMATOCRIT 41.4 % (36-46); HEMOGLOBIN 14.1 g/dL (12.0-16.0); LYMPHOCYTES # (AUTO) 0.4 K/uL (1.0-4.8); LYMPHOCYTES % (AUTO) 2.9 % (22.0-44.0); MEAN CORPUSCULAR HEMOGLOBIN 28.5 pg (26.0-34.0); MEAN CORPUSCULAR VOLUME 84 fL (80-100); MONOCYTES # (AUTO) 0.8 K/uL (0.1-1.0); MONOCYTES % (AUTO) 6.4 % (2.0-9.0); NEUTROPHILS # (AUTO) 11.2 K/uL (1.8-7.7); RED BLOOD CELL COUNT(AUTO) 4.94 MIL/uL (4.00-5.20); RED CELL DISTRIBUTION WIDTH 14.5 % (11.5-14.5)
[2017-12-19 06:53] LABS: NEUTROPHILS % (AUTO) 90.6 % (40.0-70.0)
[2017-12-19 06:55] LABS: CALCIUM, TOTAL 8.4 mg/dL (8.8-10.5); CREATININE 2.14 mg/dL (0.60-1.30); MAGNESIUM 2.4 mg/dL (1.80-2.40); POTASSIUM 4.6 mmol/L (3.5-5.1)
[2017-12-19] MEDS: HEPARIN SODIUM,PORCINE 5,000 UNITS/ML VIAL SQ SCH ×3 (08:02→16:17)
[2017-12-19] MEDS: GABAPENTIN 300 MG CAPSULE PO SCH ×3 (08:03→20:57)
[2017-12-19] MEDS: OMEPRAZOLE 20 MG CAPSULE PO SCH (08:03)
[2017-12-19] MEDS: ASPIRIN 81 MG CHEWABLE TABLET PO SCH (08:03)
[2017-12-19 08:09] VITALS: BP 94/48
[2017-12-19] MEDS: ACETAMINOPHEN 325 MG TABLET PO PRN (08:13)
[2017-12-19] MEDS ORDERED: SODIUM CHLORIDE 0.9% 500 ML IV ONE (08:30)
[2017-12-19] MEDS: FUROSEMIDE 40 MG/4 ML VIAL IVP SCH (08:48)
[2017-12-19] MEDS: CARVEDILOL 25 MG TABLET PO SCH ×2 (08:48→20:45)
[2017-12-19] MEDS: AMIODARONE HCL 200 MG TABLET PO SCH ×2 (08:48→20:45)
[2017-12-19 10:14] LABS: BASOPHILS % (AUTO) 0.2 % (0.0-2.0); EOSINOPHILS % (AUTO) 0 % (1.0-6.0); HEMOGLOBIN 13.3 g/dL (12.0-16.0); LYMPHOCYTES # (AUTO) 0.3 K/uL (1.0-4.8); LYMPHOCYTES % (AUTO) 2.3 % (22.0-44.0); MEAN CORPUSCULAR HEMOGLOBIN 27.8 pg (26.0-34.0); MEAN CORPUSCULAR HGB CONC 33.4 G/dL (31.0-37.0); MEAN CORPUSCULAR VOLUME 83 fL (80-100); MONOCYTES # (AUTO) 0.8 K/uL (0.1-1.0); MONOCYTES % (AUTO) 6.2 % (2.0-9.0); NEUTROPHILS # (AUTO) 11.3 K/uL (1.8-7.7); PLATELET COUNT (AUTO) 126 K/uL (150-450); RED BLOOD CELL COUNT(AUTO) 4.79 MIL/uL (4.00-5.20); RED CELL DISTRIBUTION WIDTH 14.9 % (11.5-14.5)
[2017-12-19 10:15] LABS: NEUTROPHILS % (AUTO) 91.3 % (40.0-70.0)
[2017-12-19 10:25] LABS: CREATININE 2.54 mg/dL (0.60-1.30); MAGNESIUM 2.3 mg/dL (1.80-2.40); POTASSIUM 4.5 mmol/L (3.5-5.1)
[2017-12-19 10:53] LABS: PLATELET COUNT (AUTO) 120 K/uL (150-450)
[2017-12-19 11:59] VITALS: BP 96/64
[2017-12-19 12:17] LABS: APPEARANCE,URINE TURBID (CLEAR); BILIRUBIN,URINE NEGATIVE (NEGATIVE); GLUCOSE, URINE (UA) NEGATIVE (NEGATIVE); KETONES,URINE NEGATIVE (NEGATIVE); LEUKOCYTE ESTERASE ,URINE LARGE (NEGATIVE); NITRATE,URINE NEGATIVE (NEGATIVE); OCCULT BLOOD,URINE MODERATE (NEGATIVE); PH,URINE 5.5 (5.0-8.0); PROTEIN,URINE POS 1+ (NEGATIVE)
[2017-12-19 12:26] LABS: BACTERIA,URINE Many /HPF (None Seen); MUCUS,URINE Few LPF (None Seen); SQUAMOUS EPITHELIAL CELL,UR Few /LPF (None Seen); WBC,URINE 51-100 /HPF (0-5)
[2017-12-19 15:44] VITALS: BP 92/35
[2017-12-19] MEDS: MIDODRINE HCL 5 MG TABLET PO SCH ×2 (18:44→20:57)
[2017-12-19] MEDS: CIPROFLOXACIN HCL 500 MG TABLET PO SCH (20:57)
[2017-12-19] MEDS: DONEPEZIL HCL 5 MG TABLET PO SCH (20:57)
[2017-12-19 21:03] VITALS: BP 84/46
[2017-12-20 00:27] VITALS: BP 82/56
[2017-12-20 05:16] VITALS: BP 94/46
[2017-12-20 07:18] LABS: BASOPHILS % (AUTO) 0.1 % (0.0-2.0); EOSINOPHILS % (AUTO) 0 % (1.0-6.0); HEMATOCRIT 38.5 % (36-46); HEMOGLOBIN 13.1 g/dL (12.0-16.0); LYMPHOCYTES # (AUTO) 0.4 K/uL (1.0-4.8); LYMPHOCYTES % (AUTO) 3.1 % (22.0-44.0); MEAN CORPUSCULAR HEMOGLOBIN 28.9 pg (26.0-34.0); MEAN CORPUSCULAR VOLUME 85 fL (80-100); MONOCYTES # (AUTO) 0.9 K/uL (0.1-1.0); MONOCYTES % (AUTO) 7.6 % (2.0-9.0); NEUTROPHILS # (AUTO) 10.9 K/uL (1.8-7.7); PLATELET COUNT (AUTO) 113 K/uL (150-450); RED BLOOD CELL COUNT(AUTO) 4.52 MIL/uL (4.00-5.20); RED CELL DISTRIBUTION WIDTH 14.6 % (11.5-14.5)
[2017-12-20 07:36] VITALS: BP 101/46
[2017-12-20 07:38] LABS: NEUTROPHILS % (AUTO) 89.2 % (40.0-70.0)
[2017-12-20 07:40] LABS: CREATININE 3.65 mg/dL (0.60-1.30); MAGNESIUM 2.6 mg/dL (1.80-2.40); POTASSIUM 4.8 mmol/L (3.5-5.1)
[2017-12-20] MEDS: HEPARIN SODIUM,PORCINE 5,000 UNITS/ML VIAL SQ SCH ×3 (08:35→16:49)
[2017-12-20] MEDS: OMEPRAZOLE 20 MG CAPSULE PO SCH (08:35)
[2017-12-20] MEDS: CARVEDILOL 25 MG TABLET PO SCH (08:35)
[2017-12-20] MEDS: ASPIRIN 81 MG CHEWABLE TABLET PO SCH (08:35)
[2017-12-20] MEDS: AMIODARONE HCL 200 MG TABLET PO SCH (08:35)
[2017-12-20] MEDS: FUROSEMIDE 40 MG/4 ML VIAL IVP SCH (08:35)
[2017-12-20] MEDS: GABAPENTIN 300 MG CAPSULE PO SCH ×2 (08:35→16:49)
[2017-12-20] MEDS: CIPROFLOXACIN HCL 500 MG TABLET PO SCH (08:35)
[2017-12-20] MEDS: MIDODRINE HCL 5 MG TABLET PO SCH ×2 (08:39→16:49)
[2017-12-20 11:23] VITALS: BP 100/50
[2017-12-20 15:26] VITALS: BP 105/60
[2017-12-20] MEDS ORDERED: AMIO200T44 PO (17:01)
[2017-12-20] MEDS ORDERED: CARV25 PO (17:03)
[2017-12-20] MEDS ORDERED: CIPR-278 PO (17:04)
[2017-12-20] MEDS ORDERED: FURO40 PO (17:04)
[2017-12-20] MEDS ORDERED: HEPA500041 SQ (17:05)
[2017-12-20] MEDS ORDERED: ACET-2247 PO (17:06)
[2017-12-20] MEDS ORDERED: MIDO5TAB23 PO (17:06)
[2017-12-20] MEDS ORDERED: MOM30 PO (17:08)
[2017-12-21] MEDS ORDERED: HEPA500018 SQ (17:53)
== END 2017-12-20 17:40 | DRG 291 ==
LOC: EMS 08:52 → 5N 15:19 → 5S 15:19 → UNDOADMIN 15:19
PROVIDERS: ADMIT Family Medicine; ATTEND Family Medicine
PROC: 5A2204Z Restoration of Cardiac Rhythm, Single (ICD-10-PCS; principal; 2017-12-17)
PROC: B246ZZ4 Ultrasonography of Right and Left Heart, Transesophageal (ICD-10-PCS; 2017-12-17)
DX: I13.0 Hypertensive heart and chronic kidney disease with heart failure and stage 1 through stage 4 chronic kidney disease, or unspecified chronic kidney disease (principal); I50.43 Acute on chronic combined systolic (congestive) and diastolic (congestive) heart failure; I48.91 Unspecified atrial fibrillation; I42.0 Dilated cardiomyopathy; F03.90 Unspecified dementia, unspecified severity, without behavioral disturbance, psychotic disturbance, mood disturbance, and anxiety; I25.10 Atherosclerotic heart disease of native coronary artery without angina pectoris; N18.9 Chronic kidney disease, unspecified; B96.4 Proteus (mirabilis) (morganii) as the cause of diseases classified elsewhere; Z91.19 Patient's noncompliance with other medical treatment and regimen; Z79.82 Long term (current) use of aspirin; Z79.899 Other long term (current) drug therapy; Z87.440 Personal history of urinary (tract) infections
CPT/HCPCS: 83735; 87086; 92960; 93005; 93312; 96374; 96375; 97110; 97116; 97161; 97166; 97530; 97535; 99291; J1160; J1644; J1940; J2250; J2704; J3010; J3490; J7040; J7060

== ENCOUNTER 2017-12-21 00:39 | Inpatient (IN) | payer MEDICARE ==
[~2017-12-21] VITALS: Ht 160 cm; Wt 80.2 kg
[~2017-12-21 00:39] MED LIST changes: +ACET-2247 PO; +AMIO200T44 PO; -ASPI-1182 PO; +ASPI-989 PO; -CARV12 PO; +CARV25 PO; +CIPR-278 PO; +DONE5TAB5 PO; -FURO20 PO; +FURO40 PO; +HEPA500041 SQ; -KDUR10 PO; +MIDO5TAB23 PO; +MOM30 PO; +OMEP20 PO
[2017-12-21] MEDS ORDERED: 0.9% SODIUM CHLORIDE 10 ML SYRINGE IVP PRN ×3 (00:45→17:45)
[2017-12-21 00:58] LABS: GLUCOSE,POINT OF CARE 132 MG/DL (70-110)
[2017-12-21] MEDS ORDERED: ACETAMINOPHEN 1000 MG/ISO-OSM 100 ML IV ONE (01:15)
[2017-12-21] MEDS ORDERED: ALBUTEROL SULFATE 2.5 MG/0.5 ML NEB SOLUTION NEB ONE (01:15)
[2017-12-21] MEDS ORDERED: IPRATROPIUM BROMIDE 0.5 MG/2.5 ML NEB SOLUTION NEB ONE (01:15)
[2017-12-21 01:23] LABS: BASOPHILS % (AUTO) 0.1 % (0.0-2.0); EOSINOPHILS % (AUTO) 0 % (1.0-6.0); HEMATOCRIT 38.7 % (36-46); HEMOGLOBIN 12.7 g/dL (12.0-16.0); LYMPHOCYTES # (AUTO) 0.4 K/uL (1.0-4.8); LYMPHOCYTES % (AUTO) 3.9 % (22.0-44.0); MEAN CORPUSCULAR HEMOGLOBIN 27.6 pg (26.0-34.0); MEAN CORPUSCULAR HGB CONC 32.8 G/dL (31.0-37.0); MEAN CORPUSCULAR VOLUME 84 fL (80-100); MONOCYTES # (AUTO) 1.3 K/uL (0.1-1.0); MONOCYTES % (AUTO) 11.2 % (2.0-9.0); NEUTROPHILS # (AUTO) 9.8 K/uL (1.8-7.7); NEUTROPHILS % (AUTO) 84.8 % (40.0-70.0); PLATELET COUNT (AUTO) 135 K/uL (150-450); RED BLOOD CELL COUNT(AUTO) 4.58 MIL/uL (4.00-5.20); RED CELL DISTRIBUTION WIDTH 14.9 % (11.5-14.5)
[2017-12-21 01:31] LABS: APPEARANCE,URINE CLOUDY (CLEAR); GLUCOSE, URINE (UA) NEGATIVE (NEGATIVE); KETONES,URINE TRACE mg/dL (NEGATIVE); LEUKOCYTE ESTERASE ,URINE MODERATE (NEGATIVE); NITRATE,URINE NEGATIVE (NEGATIVE); OCCULT BLOOD,URINE LARGE (NEGATIVE); PH,URINE 5.5 (5.0-8.0); PROTEIN,URINE SEE CONFIRM (NEGATIVE)
[2017-12-21 01:31] LABS: SOURCE, BLOOD GAS ARTERIAL
[2017-12-21 01:32] LABS: BILIRUBIN,URINE PRELIM. POSITIVE (NEGATIVE)
[2017-12-21 01:33] LABS: ANION GAP 3 mmol/L (8-16); CALCIUM, TOTAL 7.7 mg/dL (8.8-10.5); CARBON DIOXIDE 31 mmol/L (22-29); CHLORIDE 101 mmol/L (98-107); CREATININE 4.67 mg/dL (0.60-1.30); GLOMERULAR FILTR. RATE CALC 9 mL/min (>60); GLUCOSE,RANDOM 138 mg/dL (70-110); POTASSIUM 5.4 mmol/L (3.5-5.1); SODIUM SERUM 135 mmol/L (136-145); UREA NITROGEN, BLOOD 81 mg/dL (7-18)
[2017-12-21 01:34] LABS: SULFOSALICYLIC ACID,URINE 1+ (Negative)
[2017-12-21 01:35] LABS: BACTERIA,URINE Many /HPF (None Seen)
[2017-12-21 01:39] LABS: ALANINE AMINOTRANSFERASE 28 U/L (12-78); ALBUMIN 2.4 g/dL (3.4-5.0); ALKALINE PHOSPHATASE 121 U/L (46-116); ASPARTATE AMINOTRANSFERASE 28 U/L (15-37); BILIRUBIN,TOTAL 0.4 mg/dL (0.1-1.0); CREATINE KINASE, TOTAL 19 U/L (26-192); TOTAL PROTEIN, SERUM 6.8 g/dL (6.4-8.2)
[2017-12-21 01:41] LABS: LACTIC ACID 0.7 mmol/L (0.4-2.0)
[2017-12-21 01:49] LABS: B-TYPE NATRIURETIC PEPTIDE 1180 pg/mL (0-100)
[2017-12-21 01:51] LABS: ABG A-A DIFF O2 47.7 mmHg (10-20.0); ABG BASE EXCESS -2.7 mmol/L (-2.0-3.0); ABG CARBOXYHEMOGLOBIN 1.8 % (0.0-1.5); ABG HCO3 21.9 mmol/L (22.0-26.0); ABG METHEMOGLOBIN 0.4 % (0.0-1.5); ABG OXYGEN CONTENT 17.4 mL/dL (15.0-23.0); ABG OXYGEN SATURATION 96.1 % (95.0-98.0); ABG PCO2 52 mmHg (35-45); ABG PH 7.286 (7.35-7.450); ABG TOTAL HEMOGLOBIN 13.1 G/dL (12.0-18.0); PO2, ARTERIAL BG 90.1 mmHg (75.0-83.0)
[2017-12-21 01:52] LABS: O2 DEVICE,BLOOD GAS CANNULA (ROOM AIR); SITE, BLOOD GAS RT RADIAL
[2017-12-21] MEDS ORDERED: LEVOFLOXACIN 750 MG/D5% WATER 150 ML IV ONE (02:15)
[2017-12-21] MEDS ORDERED: PIPERACILLIN/TAZO 3.375 GM/D5W 50 ML IV ONE (02:15)
[2017-12-21] MEDS: SODIUM CHLORIDE 0.9% 250 ML IV ONE ×2 (02:53→03:03)
[2017-12-21] MEDS ORDERED: NALOXONE HCL 1 MG/ML 2 ML SYG IM ONE (03:15)
[2017-12-21] MEDS ORDERED: NOREPINEPHRINE 4 MG/D5%-WATER 250 ML IV PRN (03:21)
[2017-12-21] MEDS ORDERED: SODIUM CHLORIDE 0.9% 500 ML IV ONE (03:30)
[2017-12-21] MEDS ORDERED: ALBUMIN HUMAN 25%-25GM/100ML 100 ML IV ONE (04:30)
[2017-12-21] MEDS ORDERED: SODIUM CHLORIDE 0.9% 1,000 ML IV ONE (04:45)
[2017-12-21 05:42] LABS: ABG A-A DIFF O2 49.8 mmHg (10-20.0); ABG BASE EXCESS -0.9 mmol/L (-2.0-3.0); ABG CARBOXYHEMOGLOBIN 1.3 % (0.0-1.5); ABG HCO3 23.3 mmol/L (22.0-26.0); ABG METHEMOGLOBIN 0.2 % (0.0-1.5); ABG OXYGEN CONTENT 17.7 mL/dL (15.0-23.0); ABG OXYGEN SATURATION 97.8 % (95.0-98.0); ABG OXYHEMOGLOBIN 96.3 % (94.0-100.0); ABG PCO2 51 mmHg (35-45); ABG PH 7.313 (7.35-7.450); PO2, ARTERIAL BG 103.8 mmHg (75.0-83.0); SOURCE, BLOOD GAS ARTERIAL; TEMPERATURE, FAHRENHEIT, BG 98.9 FAHREN (96.0-98.6)
[2017-12-21 05:43] LABS: O2 DEVICE,BLOOD GAS BIPAP (ROOM AIR); SITE, BLOOD GAS RT RADIAL
[2017-12-21] MEDS ORDERED: ACETAMINOPHEN 325 MG TABLET PO PRN ×2 (05:45→17:45)
[2017-12-21] MEDS ORDERED: ALBUTEROL SULFATE 2.5 MG/0.5 ML NEB SOLUTION NEB SCH (07:00)
[2017-12-21] MEDS ORDERED: IPRATROPIUM BROMIDE 0.5 MG/2.5 ML NEB SOLUTION NEB SCH (07:00)
[2017-12-21 08:15] VITALS: BP 106/45
[2017-12-21 12:00] VITALS: BP 102/67
[2017-12-21 16:00] VITALS: BP 124/76
[2017-12-21] MEDS ORDERED: FUROSEMIDE 40 MG TABLET PO SCH (17:45)
[2017-12-21] MEDS ORDERED: MAGNESIUM HYDROXIDE SUSPENSION 30 ML UDCUP PO PRN (17:45)
[2017-12-21] MEDS ORDERED: HEPA500018 SQ (17:53)
[2017-12-21] MEDS ORDERED: *CLINICAL-LEVOFLOXACIN IVPB DOSING CLINICAL ONE ×2 (18:00→18:30)
[2017-12-21] MEDS: HEPARIN SODIUM,PORCINE 5,000 UNITS/ML VIAL SQ SCH ×2 (18:29→23:53)
[2017-12-21] MEDS: OMEPRAZOLE 20 MG CAPSULE PO SCH (18:29)
[2017-12-21] MEDS: AMIODARONE HCL 200 MG TABLET PO SCH (18:29)
[2017-12-21 20:53] VITALS: BP 104/65
[2017-12-21] MEDS ORDERED: CIPROFLOXACIN HCL 500 MG TABLET PO SCH (21:00)
[2017-12-21] MEDS ORDERED: GABAPENTIN 300 MG CAPSULE PO SCH (21:00)
[2017-12-21] MEDS: PIPERACILLIN/TAZO 3.375 GM/D5W 50 ML IV SCH (21:58)
[2017-12-21] MEDS: DONEPEZIL HCL 5 MG TABLET PO SCH (21:58)
[2017-12-21] MEDS: MIDODRINE HCL 5 MG TABLET PO SCH (21:58)
[2017-12-21] MEDS ORDERED: SODIUM CHLORIDE 0.9% 100 ML ONE (22:09)
[2017-12-21 22:25] LABS: CALCIUM, TOTAL 8.4 mg/dL (8.8-10.5); CREATININE 4.67 mg/dL (0.60-1.30); POTASSIUM 5.6 mmol/L (3.5-5.1)
[2017-12-21] MEDS ORDERED: SODIUM POLYSTYRENE SULFONATE 15 GM/60 ML SUSPENSION BOTTLE PO ONE (22:45)
[2017-12-21] MEDS: CARVEDILOL 25 MG TABLET PO SCH (23:27)
[2017-12-21 23:59] VITALS: BP 111/62
[2017-12-22 02:02] LABS: CREATININE,URINE RANDOM 47.3 mg/dL (30.0-125.0)
[2017-12-22 04:25] VITALS: BP 110/59
[2017-12-22] MEDS: PIPERACILLIN/TAZO 3.375 GM/D5W 50 ML IV SCH ×3 (06:04→20:36)
[2017-12-22 07:23] LABS: BASOPHILS % (AUTO) 0.1 % (0.0-2.0); EOSINOPHILS % (AUTO) 0 % (1.0-6.0); HEMATOCRIT 35.1 % (36-46); HEMOGLOBIN 11.6 g/dL (12.0-16.0); LYMPHOCYTES # (AUTO) 0.4 K/uL (1.0-4.8); MEAN CORPUSCULAR HEMOGLOBIN 27.6 pg (26.0-34.0); MEAN CORPUSCULAR HGB CONC 33.1 G/dL (31.0-37.0); MEAN CORPUSCULAR VOLUME 83 fL (80-100); MONOCYTES # (AUTO) 0.7 K/uL (0.1-1.0); MONOCYTES % (AUTO) 8.3 % (2.0-9.0); NEUTROPHILS # (AUTO) 6.8 K/uL (1.8-7.7); PLATELET COUNT (AUTO) 139 K/uL (150-450); RED BLOOD CELL COUNT(AUTO) 4.21 MIL/uL (4.00-5.20); RED CELL DISTRIBUTION WIDTH 14.9 % (11.5-14.5)
[2017-12-22 07:26] VITALS: BP 109/54
[2017-12-22 07:29] LABS: NEUTROPHILS % (AUTO) 86.6 % (40.0-70.0)
[2017-12-22 07:51] LABS: ALBUMIN 2.4 g/dL (3.4-5.0); BILIRUBIN,TOTAL 0.4 mg/dL (0.1-1.0); CALCIUM, TOTAL 8.1 mg/dL (8.8-10.5); CREATININE 4.37 mg/dL (0.60-1.30); MAGNESIUM 2.6 mg/dL (1.80-2.40); POTASSIUM 4.6 mmol/L (3.5-5.1); THYROID STIMULATING HORMONE 0.71 uIU/mL (0.36-3.74); TOTAL PROTEIN, SERUM 6.5 g/dL (6.4-8.2)
[2017-12-22] MEDS: LEVOFLOXACIN 250 MG/D5% WATER 50 ML IV SCH (08:11)
[2017-12-22] MEDS: CARVEDILOL 25 MG TABLET PO SCH ×3 (08:12→20:36)
[2017-12-22] MEDS: ASPIRIN 81 MG CHEWABLE TABLET PO SCH (08:12)
[2017-12-22] MEDS: HEPARIN SODIUM,PORCINE 5,000 UNITS/ML VIAL SQ SCH ×2 (08:12→15:48)
[2017-12-22] MEDS: GABAPENTIN 100 MG CAPSULE PO SCH (08:14)
[2017-12-22] MEDS: OMEPRAZOLE 20 MG CAPSULE PO SCH (08:14)
[2017-12-22] MEDS: AMIODARONE HCL 200 MG TABLET PO SCH (08:14)
[2017-12-22] MEDS: MIDODRINE HCL 5 MG TABLET PO SCH ×3 (09:27→20:36)
[2017-12-22 11:21] LABS: ABG A-A DIFF O2 75.4 mmHg (10-20.0); ABG BASE EXCESS 0.2 mmol/L (-2.0-3.0); ABG CARBOXYHEMOGLOBIN 1.4 % (0.0-1.5); ABG HCO3 23.8 mmol/L (22.0-26.0); ABG METHEMOGLOBIN 0.4 % (0.0-1.5); ABG OXYGEN CONTENT 16.8 mL/dL (15.0-23.0); ABG OXYHEMOGLOBIN 94.3 % (94.0-100.0); ABG PCO2 58 mmHg (35-45); ABG PH 7.285 (7.35-7.450); ABG TOTAL HEMOGLOBIN 12.6 G/dL (12.0-18.0); O2 DEVICE,BLOOD GAS CANNULA (ROOM AIR); PO2, ARTERIAL BG 85.4 mmHg (75.0-83.0); SITE, BLOOD GAS RT RADIAL; SOURCE, BLOOD GAS ARTERIAL; TEMPERATURE, FAHRENHEIT, BG 97.8 FAHREN (96.0-98.6)
[2017-12-22 11:37] VITALS: BP 112/50
[2017-12-22 15:26] VITALS: BP 108/44
[2017-12-22 19:30] VITALS: BP 95/45
[2017-12-22] MEDS: DONEPEZIL HCL 5 MG TABLET PO SCH (20:37)
[2017-12-22] MEDS: OXYGEN THERAPY IH SCH (20:37)
[2017-12-22 23:49] VITALS: BP 94/73
[2017-12-23] VITALS (7 sets, daily range): BP systolic 97–134; BP diastolic 50–85
[2017-12-23] MEDS: HEPARIN SODIUM,PORCINE 5,000 UNITS/ML VIAL SQ SCH ×3 (01:39→16:08)
[2017-12-23] MEDS: PIPERACILLIN/TAZO 3.375 GM/D5W 50 ML IV SCH ×2 (04:23→11:14)
[2017-12-23] MEDS ORDERED: LEVOFLOXACIN 500 MG/D5% WATER 100 ML IV SCH (06:00)
[2017-12-23 06:41] LABS: BASOPHILS % (AUTO) 0.4 % (0.0-2.0); EOSINOPHILS % (AUTO) 0 % (1.0-6.0); HEMATOCRIT 35.8 % (36-46); HEMOGLOBIN 11.7 g/dL (12.0-16.0); LYMPHOCYTES # (AUTO) 0.6 K/uL (1.0-4.8); LYMPHOCYTES % (AUTO) 9.3 % (22.0-44.0); MEAN CORPUSCULAR HEMOGLOBIN 27.4 pg (26.0-34.0); MEAN CORPUSCULAR HGB CONC 32.7 G/dL (31.0-37.0); MEAN CORPUSCULAR VOLUME 84 fL (80-100); MONOCYTES # (AUTO) 0.7 K/uL (0.1-1.0); MONOCYTES % (AUTO) 11.2 % (2.0-9.0); NEUTROPHILS # (AUTO) 4.9 K/uL (1.8-7.7); NEUTROPHILS % (AUTO) 79.1 % (40.0-70.0); PLATELET COUNT (AUTO) 159 K/uL (150-450); RED BLOOD CELL COUNT(AUTO) 4.28 MIL/uL (4.00-5.20)
[2017-12-23 07:04] LABS: CALCIUM, TOTAL 8.3 mg/dL (8.8-10.5); CREATININE 3.92 mg/dL (0.60-1.30); MAGNESIUM 2.8 mg/dL (1.80-2.40); POTASSIUM 3.9 mmol/L (3.5-5.1)
[2017-12-23] MEDS: OXYGEN THERAPY IH SCH ×2 (07:09→20:50)
[2017-12-23] MEDS: LEVOFLOXACIN 250 MG/D5% WATER 50 ML IV SCH (07:09)
[2017-12-23] MEDS: CARVEDILOL 25 MG TABLET PO SCH ×2 (08:06→20:49)
[2017-12-23] MEDS: AMIODARONE HCL 200 MG TABLET PO SCH (08:06)
[2017-12-23] MEDS: OMEPRAZOLE 20 MG CAPSULE PO SCH (08:06)
[2017-12-23] MEDS: GABAPENTIN 100 MG CAPSULE PO SCH (08:06)
[2017-12-23] MEDS: ASPIRIN 81 MG CHEWABLE TABLET PO SCH (08:06)
[2017-12-23] MEDS: MIDODRINE HCL 5 MG TABLET PO SCH ×3 (08:06→20:50)
[2017-12-23] MEDS ORDERED: MEROPENEM IV SCH (14:00)
[2017-12-23] MEDS ORDERED: SODIUM CHLORIDE 0.9% IV SCH (14:00)
[2017-12-23] MEDS: DONEPEZIL HCL 5 MG TABLET PO SCH (20:50)
[2017-12-23 21:23] LABS: GLUCOMETER DEV NAME(LOC) 5N 2S; GLUCOSE,POINT OF CARE 149 MG/DL (70-110)
[2017-12-24] VITALS (7 sets, daily range): BP systolic 104–126; BP diastolic 53–76
[2017-12-24] MEDS: HEPARIN SODIUM,PORCINE 5,000 UNITS/ML VIAL SQ SCH ×4 (00:10→23:45)
[2017-12-24] MEDS: CefoTEtan DISOD 1 GM/DEXTROSE 50 ML IV SCH (03:42)
[2017-12-24 06:48] LABS: BASOPHILS % (AUTO) 0.3 % (0.0-2.0); EOSINOPHILS % (AUTO) 0.1 % (1.0-6.0); HEMATOCRIT 37.7 % (36-46); HEMOGLOBIN 12.3 g/dL (12.0-16.0); LYMPHOCYTES # (AUTO) 0.8 K/uL (1.0-4.8); MEAN CORPUSCULAR HEMOGLOBIN 27.4 pg (26.0-34.0); MEAN CORPUSCULAR HGB CONC 32.8 G/dL (31.0-37.0); MEAN CORPUSCULAR VOLUME 84 fL (80-100); MONOCYTES # (AUTO) 0.6 K/uL (0.1-1.0); MONOCYTES % (AUTO) 10.1 % (2.0-9.0); NEUTROPHILS # (AUTO) 4.9 K/uL (1.8-7.7); NEUTROPHILS % (AUTO) 77.5 % (40.0-70.0); PLATELET COUNT (AUTO) 187 K/uL (150-450); RED CELL DISTRIBUTION WIDTH 15.1 % (11.5-14.5)
[2017-12-24 07:13] LABS: CALCIUM, TOTAL 8.6 mg/dL (8.8-10.5); CREATININE 2.91 mg/dL (0.60-1.30); MAGNESIUM 2.7 mg/dL (1.80-2.40); PHOSPHORUS 3.5 mg/dL (2.5-4.9); POTASSIUM 4.1 mmol/L (3.5-5.1)
[2017-12-24] MEDS: OXYGEN THERAPY IH SCH ×2 (08:30→20:00)
[2017-12-24] MEDS: AMIODARONE HCL 200 MG TABLET PO SCH (08:31)
[2017-12-24] MEDS: GABAPENTIN 100 MG CAPSULE PO SCH (08:31)
[2017-12-24] MEDS: MIDODRINE HCL 5 MG TABLET PO SCH ×3 (08:31→20:31)
[2017-12-24] MEDS: OMEPRAZOLE 20 MG CAPSULE PO SCH (08:31)
[2017-12-24] MEDS: ASPIRIN 81 MG CHEWABLE TABLET PO SCH (08:31)
[2017-12-24] MEDS: CARVEDILOL 25 MG TABLET PO SCH ×2 (08:31→20:30)
[2017-12-24 15:25] LABS: ABG A-A DIFF O2 21.9 mmHg (10-20.0); ABG HCO3 28.7 mmol/L (22.0-26.0); ABG METHEMOGLOBIN 0.3 % (0.0-1.5); ABG OXYGEN CONTENT 15.6 mL/dL (15.0-23.0); ABG OXYHEMOGLOBIN 90.8 % (94.0-100.0); ABG PCO2 53 mmHg (35-45); ABG PH 7.387 (7.35-7.450); ABG TOTAL HEMOGLOBIN 12.2 G/dL (12.0-18.0); PO2, ARTERIAL BG 64.7 mmHg (75.0-83.0); SOURCE, BLOOD GAS ARTERIAL; TEMPERATURE, FAHRENHEIT, BG 98.6 FAHREN (96.0-98.6)
[2017-12-24 15:26] LABS: O2 DEVICE,BLOOD GAS ROOM AIR (ROOM AIR); SITE, BLOOD GAS LFT RADIAL
[2017-12-24] MEDS: DONEPEZIL HCL 5 MG TABLET PO SCH (20:31)
[2017-12-25] MEDS: CefoTEtan DISOD 1 GM/DEXTROSE 50 ML IV SCH (02:09)
[2017-12-25 04:07] VITALS: BP 121/68
[2017-12-25 06:47] LABS: CALCIUM, TOTAL 8.6 mg/dL (8.8-10.5); MAGNESIUM 2.7 mg/dL (1.80-2.40); PHOSPHORUS 2.7 mg/dL (2.5-4.9); POTASSIUM 3.9 mmol/L (3.5-5.1)
[2017-12-25 07:38] VITALS: BP 144/86
[2017-12-25] MEDS: AMIODARONE HCL 200 MG TABLET PO SCH (08:06)
[2017-12-25] MEDS: GABAPENTIN 100 MG CAPSULE PO SCH (08:06)
[2017-12-25] MEDS: MIDODRINE HCL 5 MG TABLET PO SCH ×3 (08:06→20:51)
[2017-12-25] MEDS: CARVEDILOL 25 MG TABLET PO SCH ×2 (08:06→20:51)
[2017-12-25] MEDS: ASPIRIN 81 MG CHEWABLE TABLET PO SCH (08:06)
[2017-12-25] MEDS: HEPARIN SODIUM,PORCINE 5,000 UNITS/ML VIAL SQ SCH ×2 (08:06→16:48)
[2017-12-25] MEDS: OMEPRAZOLE 20 MG CAPSULE PO SCH (08:07)
[2017-12-25] MEDS: OXYGEN THERAPY IH SCH ×2 (08:18→20:50)
[2017-12-25 11:02] VITALS: BP 109/70
[2017-12-25 15:34] VITALS: BP 136/68
[2017-12-25 20:01] VITALS: BP 141/63
[2017-12-25] MEDS: DONEPEZIL HCL 5 MG TABLET PO SCH (20:51)
[2017-12-25 23:41] VITALS: BP 129/67
[2017-12-26] MEDS: HEPARIN SODIUM,PORCINE 5,000 UNITS/ML VIAL SQ SCH ×3 (01:43→15:55)
[2017-12-26] MEDS: CefoTEtan DISOD 1 GM/DEXTROSE 50 ML IV SCH (01:43)
[2017-12-26 04:45] VITALS: BP 137/63
[2017-12-26 06:40] LABS: CALCIUM, TOTAL 8.2 mg/dL (8.8-10.5); CREATININE 1.73 mg/dL (0.60-1.30); MAGNESIUM 2.4 mg/dL (1.80-2.40); PHOSPHORUS 3.4 mg/dL (2.5-4.9); POTASSIUM 3.9 mmol/L (3.5-5.1)
[2017-12-26 07:14] VITALS: BP 149/89
[2017-12-26] MEDS: OMEPRAZOLE 20 MG CAPSULE PO SCH (08:10)
[2017-12-26] MEDS: GABAPENTIN 100 MG CAPSULE PO SCH (08:10)
[2017-12-26] MEDS: ASPIRIN 81 MG CHEWABLE TABLET PO SCH (08:10)
[2017-12-26] MEDS: AMIODARONE HCL 200 MG TABLET PO SCH (08:10)
[2017-12-26] MEDS: CARVEDILOL 25 MG TABLET PO SCH ×2 (08:10→20:23)
[2017-12-26] MEDS: MIDODRINE HCL 5 MG TABLET PO SCH ×3 (08:11→20:23)
[2017-12-26] MEDS: OXYGEN THERAPY IH SCH ×2 (09:09→20:00)
[2017-12-26 11:34] VITALS: BP 136/70
[2017-12-26 15:37] VITALS: BP 132/64
[2017-12-26 19:55] VITALS: BP 133/70
[2017-12-26] MEDS: DONEPEZIL HCL 5 MG TABLET PO SCH (21:25)
[2017-12-26 23:22] VITALS: BP 141/78
[2017-12-27] MEDS: HEPARIN SODIUM,PORCINE 5,000 UNITS/ML VIAL SQ SCH ×4 (00:37→23:40)
[2017-12-27] MEDS: CefoTEtan DISOD 1 GM/DEXTROSE 50 ML IV SCH (02:32)
[2017-12-27 05:37] VITALS: BP 143/87
[2017-12-27 06:59] LABS: CALCIUM, TOTAL 8.6 mg/dL (8.8-10.5); CREATININE 1.53 mg/dL (0.60-1.30); MAGNESIUM 2.3 mg/dL (1.80-2.40); PHOSPHORUS 3.3 mg/dL (2.5-4.9); POTASSIUM 3.7 mmol/L (3.5-5.1)
[2017-12-27 07:58] VITALS: BP 143/81
[2017-12-27] MEDS ORDERED: PERMETHRIN 1% 60 ML LOTION TP ONE (09:00)
[2017-12-27] MEDS: MIDODRINE HCL 5 MG TABLET PO SCH ×3 (09:00→20:24)
[2017-12-27] MEDS: DIGOXIN 250 MCG/ML 2 ML AMP IVP SCH ×2 (10:23→20:25)
[2017-12-27] MEDS: OXYGEN THERAPY IH SCH ×2 (10:24→20:23)
[2017-12-27] MEDS: AMIODARONE HCL 200 MG TABLET PO SCH (10:38)
[2017-12-27] MEDS: CARVEDILOL 25 MG TABLET PO SCH ×2 (10:38→23:40)
[2017-12-27 10:41] VITALS: BP 155/78
[2017-12-27] MEDS ORDERED: CARVEDILOL 25 MG TABLET PO ONE (12:30)
[2017-12-27 15:30] VITALS: BP 146/86
[2017-12-27] MEDS: OMEPRAZOLE 20 MG CAPSULE PO SCH (15:32)
[2017-12-27] MEDS: ASPIRIN 81 MG CHEWABLE TABLET PO SCH (15:33)
[2017-12-27] MEDS: GABAPENTIN 100 MG CAPSULE PO SCH (15:34)
[2017-12-27 20:00] VITALS: BP 107/60
[2017-12-27] MEDS: DONEPEZIL HCL 5 MG TABLET PO SCH (20:24)
[2017-12-27 23:12] VITALS: BP 142/70
[2017-12-28] MEDS: CefoTEtan DISOD 1 GM/DEXTROSE 50 ML IV SCH (02:14)
[2017-12-28 05:45] VITALS: BP 151/81
[2017-12-28] MEDS: OXYGEN THERAPY IH SCH ×2 (08:00→21:27)
[2017-12-28 08:16] VITALS: BP 146/84
[2017-12-28] MEDS: HEPARIN SODIUM,PORCINE 5,000 UNITS/ML VIAL SQ SCH ×2 (09:39→16:04)
[2017-12-28] MEDS: MIDODRINE HCL 5 MG TABLET PO SCH ×3 (09:40→21:00)
[2017-12-28] MEDS: OMEPRAZOLE 20 MG CAPSULE PO SCH (09:40)
[2017-12-28] MEDS: CARVEDILOL 25 MG TABLET PO SCH ×2 (09:40→21:28)
[2017-12-28] MEDS: GABAPENTIN 100 MG CAPSULE PO SCH (09:40)
[2017-12-28] MEDS: ASPIRIN 81 MG CHEWABLE TABLET PO SCH (09:41)
[2017-12-28] MEDS: AMIODARONE HCL 200 MG TABLET PO SCH (09:41)
[2017-12-28 12:17] VITALS: BP 118/78
[2017-12-28 17:08] VITALS: BP 151/69
[2017-12-28 19:45] VITALS: BP 129/82
[2017-12-28] MEDS: DIGOXIN 250 MCG/ML 2 ML AMP IVP SCH (21:27)
[2017-12-28] MEDS: DONEPEZIL HCL 5 MG TABLET PO SCH (21:28)
[2017-12-28 23:03] VITALS: BP 149/86
[2017-12-28] MEDS ORDERED: SODIUM CHLORIDE 0.9% 100 ML ONE (23:48)
[2017-12-29] MEDS: HEPARIN SODIUM,PORCINE 5,000 UNITS/ML VIAL SQ SCH ×4 (00:31→23:55)
[2017-12-29] MEDS: CefoTEtan DISOD 1 GM/DEXTROSE 50 ML IV SCH (01:59)
[2017-12-29 03:30] VITALS: BP 145/62
[2017-12-29 07:58] VITALS: BP 149/77
[2017-12-29] MEDS: MIDODRINE HCL 5 MG TABLET PO SCH ×3 (07:59→20:40)
[2017-12-29] MEDS: CARVEDILOL 25 MG TABLET PO SCH ×2 (07:59→20:40)
[2017-12-29] MEDS: ASPIRIN 81 MG CHEWABLE TABLET PO SCH (07:59)
[2017-12-29] MEDS: GABAPENTIN 100 MG CAPSULE PO SCH (07:59)
[2017-12-29] MEDS: OMEPRAZOLE 20 MG CAPSULE PO SCH (07:59)
[2017-12-29] MEDS: AMIODARONE HCL 200 MG TABLET PO SCH (07:59)
[2017-12-29] MEDS: OXYGEN THERAPY IH SCH (08:03)
[2017-12-29 08:56] LABS: CALCIUM, TOTAL 8.3 mg/dL (8.8-10.5); CREATININE 1.55 mg/dL (0.60-1.30); POTASSIUM 3.8 mmol/L (3.5-5.1)
[2017-12-29 09:00] LABS: PHOSPHORUS 3.5 mg/dL (2.5-4.9)
[2017-12-29 11:19] VITALS: BP 140/73
[2017-12-29 16:11] VITALS: BP 137/70
[2017-12-29 19:47] VITALS: BP 142/53
[2017-12-29] MEDS: DONEPEZIL HCL 5 MG TABLET PO SCH (20:40)
[2017-12-29] MEDS: DIGOXIN 250 MCG/ML 2 ML AMP IVP SCH (20:40)
[2017-12-30] VITALS (7 sets, daily range): BP systolic 130–152; BP diastolic 58–78
[2017-12-30] MEDS: CefoTEtan DISOD 1 GM/DEXTROSE 50 ML IV SCH (02:09)
[2017-12-30 06:45] LABS: CALCIUM, TOTAL 8.5 mg/dL (8.8-10.5); CREATININE 1.51 mg/dL (0.60-1.30); POTASSIUM 4.1 mmol/L (3.5-5.1)
[2017-12-30] MEDS: AMIODARONE HCL 200 MG TABLET PO SCH (08:52)
[2017-12-30] MEDS: OXYGEN THERAPY IH SCH ×3 (08:52→20:00)
[2017-12-30] MEDS: OMEPRAZOLE 20 MG CAPSULE PO SCH (08:52)
[2017-12-30] MEDS: HEPARIN SODIUM,PORCINE 5,000 UNITS/ML VIAL SQ SCH ×2 (08:52→16:00)
[2017-12-30] MEDS: CARVEDILOL 25 MG TABLET PO SCH ×2 (08:52→20:34)
[2017-12-30] MEDS: GABAPENTIN 100 MG CAPSULE PO SCH (08:53)
[2017-12-30] MEDS: ASPIRIN 81 MG CHEWABLE TABLET PO SCH (08:53)
[2017-12-30] MEDS: MIDODRINE HCL 5 MG TABLET PO SCH ×3 (08:55→20:34)
[2017-12-30] MEDS: DIGOXIN 250 MCG/ML 2 ML AMP IVP SCH (20:34)
[2017-12-30] MEDS: DONEPEZIL HCL 5 MG TABLET PO SCH (20:34)
[2017-12-31] MEDS: HEPARIN SODIUM,PORCINE 5,000 UNITS/ML VIAL SQ SCH ×3 (00:39→16:00)
[2017-12-31] MEDS: CefoTEtan DISOD 1 GM/DEXTROSE 50 ML IV SCH (01:21)
[2017-12-31 04:27] VITALS: BP 139/87
[2017-12-31 06:50] LABS: BASOPHILS % (AUTO) 0.3 % (0.0-2.0); EOSINOPHILS % (AUTO) 0.1 % (1.0-6.0); HEMATOCRIT 38.8 % (36-46); HEMOGLOBIN 12.9 g/dL (12.0-16.0); LYMPHOCYTES # (AUTO) 0.9 K/uL (1.0-4.8); LYMPHOCYTES % (AUTO) 10.5 % (22.0-44.0); MEAN CORPUSCULAR HEMOGLOBIN 27.8 pg (26.0-34.0); MEAN CORPUSCULAR HGB CONC 33.2 G/dL (31.0-37.0); MEAN CORPUSCULAR VOLUME 84 fL (80-100); MONOCYTES # (AUTO) 0.4 K/uL (0.1-1.0); MONOCYTES % (AUTO) 4.7 % (2.0-9.0); NEUTROPHILS # (AUTO) 7.6 K/uL (1.8-7.7); NEUTROPHILS % (AUTO) 84.4 % (40.0-70.0); PLATELET COUNT (AUTO) 280 K/uL (150-450); RED BLOOD CELL COUNT(AUTO) 4.63 MIL/uL (4.00-5.20); RED CELL DISTRIBUTION WIDTH 15.3 % (11.5-14.5)
[2017-12-31 07:06] LABS: CALCIUM, TOTAL 8.2 mg/dL (8.8-10.5); CREATININE 1.41 mg/dL (0.60-1.30); POTASSIUM 4.1 mmol/L (3.5-5.1)
[2017-12-31] MEDS: CARVEDILOL 25 MG TABLET PO SCH (07:59)
[2017-12-31] MEDS: OXYGEN THERAPY IH SCH (08:07)
[2017-12-31] MEDS: MIDODRINE HCL 5 MG TABLET PO SCH ×2 (08:16→16:00)
[2017-12-31] MEDS: OMEPRAZOLE 20 MG CAPSULE PO SCH (08:16)
[2017-12-31] MEDS: ASPIRIN 81 MG CHEWABLE TABLET PO SCH (08:16)
[2017-12-31] MEDS: AMIODARONE HCL 200 MG TABLET PO SCH (08:16)
[2017-12-31] MEDS: GABAPENTIN 100 MG CAPSULE PO SCH (08:16)
[2017-12-31 09:14] VITALS: BP 140/78
[2017-12-31 11:46] VITALS: BP 134/79
[2017-12-31] MEDS ORDERED: IOVERSOL 350 MG/ML 150 ML VIAL ONE (14:58)
[2017-12-31] MEDS ORDERED: METOPROLOL TARTRATE 5 MG/5 ML VIAL ONE (15:19)
[2017-12-31] MEDS ORDERED: NITROGLYCERIN 400 MCG/SUBLINGUAL SPRAY 4.9 GM BOTTLE SL ONE ×2 (15:19→15:30)
[2017-12-31] MEDS ORDERED: METOPROLOL TARTRATE 5 MG/5 ML VIAL IVP ONE ×3 (15:34→15:49)
[2017-12-31] MEDS ORDERED: DIGO125T2 PO (17:25)
[2017-12-31] MEDS ORDERED: MIDO5TAB23 PO (17:26)
== END 2017-12-31 18:20 | disposition home health service (06) | DRG 871 ==
LOC: EMS 00:40 → ICU 04:08 → 5N 19:50
PROVIDERS: ADMIT Family Medicine; ATTEND Family Medicine
PROC: 5A09457 Assistance with Respiratory Ventilation, 24-96 Consecutive Hours, Continuous Positive Airway Pressure (ICD-10-PCS; principal; 2017-12-21)
PROC: 5A09457 Assistance with Respiratory Ventilation, 24-96 Consecutive Hours, Continuous Positive Airway Pressure (ICD-10-PCS; 2017-12-26)
DX: A41.51 Sepsis due to Escherichia coli [E. coli] (principal); J96.20 Acute and chronic respiratory failure, unspecified whether with hypoxia or hypercapnia; N17.0 Acute kidney failure with tubular necrosis; E43 Unspecified severe protein-calorie malnutrition; I50.21 Acute systolic (congestive) heart failure; R65.21 Severe sepsis with septic shock; G93.40 Encephalopathy, unspecified; N39.0 Urinary tract infection, site not specified; I13.0 Hypertensive heart and chronic kidney disease with heart failure and stage 1 through stage 4 chronic kidney disease, or unspecified chronic kidney disease; I42.9 Cardiomyopathy, unspecified; N13.30 Unspecified hydronephrosis; R40.0 Somnolence; I25.10 Atherosclerotic heart disease of native coronary artery without angina pectoris; M19.90 Unspecified osteoarthritis, unspecified site; I48.91 Unspecified atrial fibrillation; N18.9 Chronic kidney disease, unspecified; F03.90 Unspecified dementia, unspecified severity, without behavioral disturbance, psychotic disturbance, mood disturbance, and anxiety; E66.9 Obesity, unspecified; Z79.82 Long term (current) use of aspirin; Z79.01 Long term (current) use of anticoagulants; Z79.899 Other long term (current) drug therapy; Z87.440 Personal history of urinary (tract) infections; Z68.31 Body mass index [BMI] 31.0-31.9, adult
CPT/HCPCS: 51702; 71250; 74176; 75574; 76770; 82570; 82805; 83605; 83735; 84100; 84145; 84300; 84443; 84540; 87040; 87081; 87086; 87205; 92610; 93005; 93306; 93970; 94640; 94660; 96365; 96368; 96372; 97116; 97163; 97530; 99291; J0131; J1160; J1644; J1956; J2185; J2310; J2543; J3490; J7040; J7050; P9046

== ENCOUNTER 2018-06-04 09:28 | Inpatient (IN) | payer MEDICARE ==
[~2018-06-04] VITALS: Ht 165.1 cm; Wt 75.4 kg
[~2018-06-04 09:28] MED LIST changes: -CIPR-278 PO; +DIGO125T2 PO; -HEPA500041 SQ
[2018-06-04 09:55] LABS: BASOPHILS % (AUTO) 0.2 % (0.0-2.0); EOSINOPHILS % (AUTO) 0 % (1.0-6.0); HEMATOCRIT 44.1 % (36-46); HEMOGLOBIN 14.6 g/dL (12.0-16.0); LYMPHOCYTES # (AUTO) 0.7 K/uL (1.0-4.8); LYMPHOCYTES % (AUTO) 8.4 % (22.0-44.0); MEAN CORPUSCULAR HEMOGLOBIN 27.8 pg (26.0-34.0); MEAN CORPUSCULAR HGB CONC 33.2 G/dL (31.0-37.0); MEAN CORPUSCULAR VOLUME 84 fL (80-100); MONOCYTES # (AUTO) 0.4 K/uL (0.1-1.0); MONOCYTES % (AUTO) 4.9 % (2.0-9.0); NEUTROPHILS # (AUTO) 6.8 K/uL (1.8-7.7); PLATELET COUNT (AUTO) 170 K/uL (150-450); RED BLOOD CELL COUNT(AUTO) 5.27 MIL/uL (4.00-5.20); RED CELL DISTRIBUTION WIDTH 14.7 % (11.5-14.5)
[2018-06-04 09:59] LABS: NEUTROPHILS % (AUTO) 86.5 % (40.0-70.0)
[2018-06-04 10:04] LABS: CALCIUM, TOTAL 8.5 mg/dL (8.8-10.5); CREATININE 1.77 mg/dL (0.60-1.30); POTASSIUM 3.9 mmol/L (3.5-5.1)
[2018-06-04 10:07] LABS: PROTHROMBIN TIME 10.4 SEC (9.4-11.6)
[2018-06-04 10:10] LABS: ALBUMIN 3.4 g/dL (3.4-5.0); BILIRUBIN,TOTAL 0.6 mg/dL (0.1-1.0); TOTAL PROTEIN, SERUM 7.1 g/dL (6.4-8.2)
[2018-06-04 10:16] LABS: APPEARANCE,URINE CLEAR (CLEAR); BILIRUBIN,URINE NEGATIVE (NEGATIVE); GLUCOSE, URINE (UA) NEGATIVE (NEGATIVE); KETONES,URINE NEGATIVE (NEGATIVE); LEUKOCYTE ESTERASE ,URINE NEGATIVE (NEGATIVE); NITRATE,URINE NEGATIVE (NEGATIVE); OCCULT BLOOD,URINE NEGATIVE (NEGATIVE); PH,URINE 6.5 (5.0-8.0); PROTEIN,URINE SEE CONFIRM (NEGATIVE)
[2018-06-04 10:21] LABS: SULFOSALICYLIC ACID,URINE 1+ (Negative)
[2018-06-04 10:22] LABS: BACTERIA,URINE None Seen /HPF (None Seen); RBC,URINE None Seen /HPF (0-2); SQUAMOUS EPITHELIAL CELL,UR Moderate /LPF (None Seen); WBC,URINE 0-2 /HPF (0-5); YEAST,URINE None Seen /HPF (None Seen)
[2018-06-04] MEDS ORDERED: FUROSEMIDE 20 MG/2 ML VIAL IVP ONE (11:15)
[2018-06-04] MEDS ORDERED: 0.9% SODIUM CHLORIDE 10 ML SYRINGE IVP PRN (11:15)
[2018-06-04] MEDS ORDERED: ASPIRIN 81 MG CHEWABLE TABLET PO ONE (11:15)
[2018-06-04] MEDS ORDERED: ACETAMINOPHEN 325 MG TABLET PO PRN ×2 (11:15→14:00)
[2018-06-04] MEDS ORDERED: NITROGLYCERIN 2% (1 GM=INCH) PACKET TP ONE (11:15)
[2018-06-04] MEDS ORDERED: ONDANSETRON HCL 4 MG/2 ML VIAL IVP PRN (14:00)
[2018-06-04] MEDS ORDERED: BISACODYL 10 MG RECTAL RECTAL SUPPOSITORY PR PRN (14:00)
[2018-06-04] MEDS ORDERED: ZOLPIDEM TARTRATE 5 MG TABLET PO PRN (14:00)
[2018-06-04] MEDS ORDERED: MAGNESIUM HYDROXIDE SUSPENSION 30 ML UDCUP PO PRN (14:00)
[2018-06-04] MEDS ORDERED: HYDROCODONE/ACETAMINOPHEN 5-325 MG TABLET PO PRN (14:00)
[2018-06-04] MEDS ORDERED: MORPHINE SULFATE 4 MG/ML SYRINGE IVP PRN (14:00)
[2018-06-04 15:46] VITALS: BP 147/103
[2018-06-04] MEDS ORDERED: MIDODRINE HCL 5 MG TABLET PO SCH (16:00)
[2018-06-04] MEDS ORDERED: -PHARMACY VACCINE NOTE- MISC ONE (16:15)
[2018-06-04] MEDS: GABAPENTIN 300 MG CAPSULE PO SCH ×2 (16:47→21:45)
[2018-06-04] MEDS: MIDODRINE HCL 5 MG TABLET PO SCH ×2 (16:47→21:45)
[2018-06-04] MEDS: HEPARIN SODIUM,PORCINE 5,000 UNITS/ML VIAL SQ SCH (16:47)
[2018-06-04 19:39] VITALS: BP 149/63
[2018-06-04] MEDS: CARVEDILOL 25 MG TABLET PO SCH (21:45)
[2018-06-04] MEDS: DOCUSATE SODIUM 100 MG CAPSULE PO SCH (21:45)
[2018-06-04] MEDS: DONEPEZIL HCL 5 MG TABLET PO SCH (21:45)
[2018-06-05] VITALS (7 sets, daily range): BP systolic 105–141; BP diastolic 56–76
[2018-06-05] MEDS: HEPARIN SODIUM,PORCINE 5,000 UNITS/ML VIAL SQ SCH ×3 (00:35→15:35)
[2018-06-05 06:40] LABS: BASOPHILS % (AUTO) 0.4 % (0.0-2.0); EOSINOPHILS % (AUTO) 0.2 % (1.0-6.0); HEMOGLOBIN 13.6 g/dL (12.0-16.0); LYMPHOCYTES # (AUTO) 0.8 K/uL (1.0-4.8); LYMPHOCYTES % (AUTO) 18.7 % (22.0-44.0); MEAN CORPUSCULAR HGB CONC 32.3 G/dL (31.0-37.0); MEAN CORPUSCULAR VOLUME 84 fL (80-100); MONOCYTES # (AUTO) 0.3 K/uL (0.1-1.0); MONOCYTES % (AUTO) 7.6 % (2.0-9.0); NEUTROPHILS # (AUTO) 3.3 K/uL (1.8-7.7); NEUTROPHILS % (AUTO) 73.1 % (40.0-70.0); PLATELET COUNT (AUTO) 160 K/uL (150-450); RED BLOOD CELL COUNT(AUTO) 5.04 MIL/uL (4.00-5.20); RED CELL DISTRIBUTION WIDTH 14.8 % (11.5-14.5)
[2018-06-05 07:15] LABS: ALBUMIN 2.9 g/dL (3.4-5.0); BILIRUBIN,TOTAL 0.5 mg/dL (0.1-1.0); CALCIUM, TOTAL 8.3 mg/dL (8.8-10.5); CREATININE 1.72 mg/dL (0.60-1.30); POTASSIUM 3.7 mmol/L (3.5-5.1); TOTAL PROTEIN, SERUM 6.2 g/dL (6.4-8.2)
[2018-06-05] MEDS: ASPIRIN 325 MG TABLET PO SCH (08:30)
[2018-06-05] MEDS: PANTOPRAZOLE SODIUM 40 MG DR TABLET PO SCH (08:30)
[2018-06-05] MEDS: CARVEDILOL 25 MG TABLET PO SCH ×2 (08:31→21:23)
[2018-06-05] MEDS: AMIODARONE HCL 200 MG TABLET PO SCH (08:31)
[2018-06-05] MEDS: DIGOXIN 125 MCG TABLET PO SCH (08:31)
[2018-06-05] MEDS: FUROSEMIDE 40 MG/4 ML VIAL IVP SCH (08:32)
[2018-06-05] MEDS: GABAPENTIN 300 MG CAPSULE PO SCH ×3 (08:32→21:23)
[2018-06-05] MEDS: DOCUSATE SODIUM 100 MG CAPSULE PO SCH ×2 (08:32→21:22)
[2018-06-05] MEDS: MIDODRINE HCL 5 MG TABLET PO SCH ×3 (09:26→21:00)
[2018-06-05 18:38] LABS: GLUCOMETER DEV NAME(LOC) 5N 1P; GLUCOSE,POINT OF CARE 158 MG/DL (70-110)
[2018-06-05] MEDS: DONEPEZIL HCL 5 MG TABLET PO SCH (21:24)
[2018-06-06] VITALS (7 sets, daily range): BP systolic 96–117; BP diastolic 43–65
[2018-06-06] MEDS: HEPARIN SODIUM,PORCINE 5,000 UNITS/ML VIAL SQ SCH ×4 (00:38→23:12)
[2018-06-06 05:44] LABS: BASOPHILS % (AUTO) 0.4 % (0.0-2.0); EOSINOPHILS % (AUTO) 0.1 % (1.0-6.0); HEMATOCRIT 44.1 % (36-46); HEMOGLOBIN 14.4 g/dL (12.0-16.0); LYMPHOCYTES # (AUTO) 0.6 K/uL (1.0-4.8); LYMPHOCYTES % (AUTO) 8.5 % (22.0-44.0); MEAN CORPUSCULAR HEMOGLOBIN 27.8 pg (26.0-34.0); MEAN CORPUSCULAR HGB CONC 32.7 G/dL (31.0-37.0); MEAN CORPUSCULAR VOLUME 85 fL (80-100); MONOCYTES # (AUTO) 0.4 K/uL (0.1-1.0); MONOCYTES % (AUTO) 6.5 % (2.0-9.0); NEUTROPHILS # (AUTO) 5.6 K/uL (1.8-7.7); NEUTROPHILS % (AUTO) 84.5 % (40.0-70.0); PLATELET COUNT (AUTO) 145 K/uL (150-450); RED BLOOD CELL COUNT(AUTO) 5.18 MIL/uL (4.00-5.20); RED CELL DISTRIBUTION WIDTH 15.1 % (11.5-14.5)
[2018-06-06 05:53] LABS: CALCIUM, TOTAL 8.5 mg/dL (8.8-10.5); CREATININE 2.08 mg/dL (0.60-1.30); MAGNESIUM 2.2 mg/dL (1.80-2.40); POTASSIUM 4.4 mmol/L (3.5-5.1)
[2018-06-06] MEDS: PANTOPRAZOLE SODIUM 40 MG DR TABLET PO SCH (08:44)
[2018-06-06] MEDS: AMIODARONE HCL 200 MG TABLET PO SCH (08:44)
[2018-06-06] MEDS: MIDODRINE HCL 5 MG TABLET PO SCH ×3 (08:44→19:52)
[2018-06-06] MEDS: FUROSEMIDE 40 MG/4 ML VIAL IVP SCH (08:44)
[2018-06-06] MEDS: GABAPENTIN 300 MG CAPSULE PO SCH ×3 (08:45→19:51)
[2018-06-06] MEDS: ASPIRIN 325 MG TABLET PO SCH (08:45)
[2018-06-06] MEDS: DOCUSATE SODIUM 100 MG CAPSULE PO SCH ×2 (08:45→19:51)
[2018-06-06] MEDS: CARVEDILOL 25 MG TABLET PO SCH ×2 (08:45→19:51)
[2018-06-06] MEDS: DIGOXIN 125 MCG TABLET PO SCH (08:45)
[2018-06-06] MEDS: DONEPEZIL HCL 5 MG TABLET PO SCH (19:51)
[2018-06-07 04:18] VITALS: BP 121/58
[2018-06-07 06:24] LABS: BASOPHILS % (AUTO) 0.1 % (0.0-2.0); EOSINOPHILS % (AUTO) 0 % (1.0-6.0); HEMATOCRIT 41.6 % (36-46); HEMOGLOBIN 13.8 g/dL (12.0-16.0); LYMPHOCYTES # (AUTO) 0.5 K/uL (1.0-4.8); LYMPHOCYTES % (AUTO) 6.5 % (22.0-44.0); MEAN CORPUSCULAR HEMOGLOBIN 28.3 pg (26.0-34.0); MEAN CORPUSCULAR HGB CONC 33.1 G/dL (31.0-37.0); MEAN CORPUSCULAR VOLUME 86 fL (80-100); MONOCYTES # (AUTO) 0.4 K/uL (0.1-1.0); MONOCYTES % (AUTO) 6.1 % (2.0-9.0); NEUTROPHILS # (AUTO) 6.2 K/uL (1.8-7.7); PLATELET COUNT (AUTO) 134 K/uL (150-450); RED BLOOD CELL COUNT(AUTO) 4.86 MIL/uL (4.00-5.20)
[2018-06-07 06:37] LABS: CALCIUM, TOTAL 8.4 mg/dL (8.8-10.5); CREATININE 2.31 mg/dL (0.60-1.30); POTASSIUM 4.3 mmol/L (3.5-5.1)
[2018-06-07 06:54] LABS: NEUTROPHILS % (AUTO) 87.3 % (40.0-70.0)
[2018-06-07] MEDS: PANTOPRAZOLE SODIUM 40 MG DR TABLET PO SCH (08:48)
[2018-06-07] MEDS: DOCUSATE SODIUM 100 MG CAPSULE PO SCH ×2 (08:48→21:40)
[2018-06-07] MEDS: AMIODARONE HCL 200 MG TABLET PO SCH (08:48)
[2018-06-07] MEDS: GABAPENTIN 300 MG CAPSULE PO SCH ×3 (08:48→21:40)
[2018-06-07] MEDS: MIDODRINE HCL 5 MG TABLET PO SCH ×3 (08:48→22:40)
[2018-06-07] MEDS: DIGOXIN 125 MCG TABLET PO SCH (08:48)
[2018-06-07] MEDS: ASPIRIN 325 MG TABLET PO SCH (08:48)
[2018-06-07] MEDS: FUROSEMIDE 40 MG/4 ML VIAL IVP SCH (08:49)
[2018-06-07] MEDS: HEPARIN SODIUM,PORCINE 5,000 UNITS/ML VIAL SQ SCH ×2 (08:49→16:15)
[2018-06-07] MEDS: CARVEDILOL 25 MG TABLET PO SCH ×2 (08:49→21:40)
[2018-06-07 09:23] VITALS: BP 142/59
[2018-06-07 13:45] VITALS: BP 106/71
[2018-06-07 19:50] VITALS: BP 124/68
[2018-06-07] MEDS: DONEPEZIL HCL 5 MG TABLET PO SCH (21:40)
[2018-06-07 23:25] VITALS: BP 133/74
[2018-06-08 04:10] VITALS: BP 116/73
[2018-06-08 06:42] LABS: BASOPHILS % (AUTO) 0.2 % (0.0-2.0); EOSINOPHILS % (AUTO) 0.1 % (1.0-6.0); HEMATOCRIT 45.5 % (36-46); HEMOGLOBIN 14.8 g/dL (12.0-16.0); LYMPHOCYTES # (AUTO) 0.7 K/uL (1.0-4.8); MEAN CORPUSCULAR HEMOGLOBIN 27.9 pg (26.0-34.0); MEAN CORPUSCULAR HGB CONC 32.4 G/dL (31.0-37.0); MEAN CORPUSCULAR VOLUME 86 fL (80-100); MONOCYTES # (AUTO) 0.5 K/uL (0.1-1.0); NEUTROPHILS # (AUTO) 5.6 K/uL (1.8-7.7); NEUTROPHILS % (AUTO) 81.7 % (40.0-70.0); PLATELET COUNT (AUTO) 132 K/uL (150-450); RED BLOOD CELL COUNT(AUTO) 5.29 MIL/uL (4.00-5.20); RED CELL DISTRIBUTION WIDTH 14.8 % (11.5-14.5)
[2018-06-08 06:46] LABS: CALCIUM, TOTAL 8.7 mg/dL (8.8-10.5); CREATININE 2.2 mg/dL (0.60-1.30); MAGNESIUM 2.4 mg/dL (1.80-2.40); POTASSIUM 4.2 mmol/L (3.5-5.1)
[2018-06-08 07:48] VITALS: BP 126/82
[2018-06-08] MEDS: FUROSEMIDE 40 MG/4 ML VIAL IVP SCH (08:10)
[2018-06-08] MEDS: HEPARIN SODIUM,PORCINE 5,000 UNITS/ML VIAL SQ SCH ×4 (08:10→23:18)
[2018-06-08] MEDS: DOCUSATE SODIUM 100 MG CAPSULE PO SCH ×2 (08:11→20:16)
[2018-06-08] MEDS: AMIODARONE HCL 200 MG TABLET PO SCH (08:11)
[2018-06-08] MEDS: MIDODRINE HCL 5 MG TABLET PO SCH ×3 (08:11→20:16)
[2018-06-08] MEDS: ASPIRIN 325 MG TABLET PO SCH (08:11)
[2018-06-08] MEDS: PANTOPRAZOLE SODIUM 40 MG DR TABLET PO SCH (08:11)
[2018-06-08] MEDS: DIGOXIN 125 MCG TABLET PO SCH (08:11)
[2018-06-08] MEDS: CARVEDILOL 25 MG TABLET PO SCH ×2 (08:11→20:16)
[2018-06-08] MEDS: GABAPENTIN 300 MG CAPSULE PO SCH ×3 (08:11→20:16)
[2018-06-08 11:44] VITALS: BP 126/64
[2018-06-08 15:50] LABS: CREATININE,URINE RANDOM 35.4 mg/dL (30.0-125.0)
[2018-06-08 16:20] VITALS: BP 121/57
[2018-06-08 19:22] VITALS: BP 133/71
[2018-06-08] MEDS: DONEPEZIL HCL 5 MG TABLET PO SCH (20:16)
[2018-06-09] VITALS (7 sets, daily range): BP systolic 98–134; BP diastolic 59–73
[2018-06-09 06:09] LABS: CALCIUM, TOTAL 8.7 mg/dL (8.8-10.5); CREATININE 1.77 mg/dL (0.60-1.30); DIGOXIN 0.83 ng/mL (0.90-2.00); MAGNESIUM 2.2 mg/dL (1.80-2.40); PHOSPHORUS 3.5 mg/dL (2.5-4.9); POTASSIUM 4.1 mmol/L (3.5-5.1)
[2018-06-09] MEDS: HEPARIN SODIUM,PORCINE 5,000 UNITS/ML VIAL SQ SCH ×2 (08:35→16:36)
[2018-06-09] MEDS: FUROSEMIDE 40 MG/4 ML VIAL IVP SCH (08:36)
[2018-06-09] MEDS: ASPIRIN 325 MG TABLET PO SCH (08:36)
[2018-06-09] MEDS: MIDODRINE HCL 5 MG TABLET PO SCH ×2 (08:36→16:35)
[2018-06-09] MEDS: DIGOXIN 125 MCG TABLET PO SCH (08:36)
[2018-06-09] MEDS: AMIODARONE HCL 200 MG TABLET PO SCH (08:37)
[2018-06-09] MEDS: GABAPENTIN 300 MG CAPSULE PO SCH ×2 (08:37→16:35)
[2018-06-09] MEDS: PANTOPRAZOLE SODIUM 40 MG DR TABLET PO SCH (08:37)
[2018-06-09] MEDS: DOCUSATE SODIUM 100 MG CAPSULE PO SCH (08:37)
[2018-06-09] MEDS: CARVEDILOL 25 MG TABLET PO SCH (08:38)
== END 2018-06-09 18:42 | disposition home or self-care (01) | DRG 291 ==
LOC: EMS 09:29 → 5N 13:39 → 5S 06-05 03:42 → 5N 06-07 21:40
PROVIDERS: ADMIT Internal Medicine; ATTEND Internal Medicine
DX: I13.0 Hypertensive heart and chronic kidney disease with heart failure and stage 1 through stage 4 chronic kidney disease, or unspecified chronic kidney disease (principal); I50.31 Acute diastolic (congestive) heart failure; N17.9 Acute kidney failure, unspecified; I48.92 Unspecified atrial flutter; N13.30 Unspecified hydronephrosis; I42.9 Cardiomyopathy, unspecified; I48.91 Unspecified atrial fibrillation; F03.90 Unspecified dementia, unspecified severity, without behavioral disturbance, psychotic disturbance, mood disturbance, and anxiety; E66.9 Obesity, unspecified; I25.10 Atherosclerotic heart disease of native coronary artery without angina pectoris; K21.9 Gastro-esophageal reflux disease without esophagitis; M85.80 Other specified disorders of bone density and structure, unspecified site; N18.9 Chronic kidney disease, unspecified; Z87.440 Personal history of urinary (tract) infections; R80.9 Proteinuria, unspecified; I95.9 Hypotension, unspecified; Z23 Encounter for immunization
CPT/HCPCS: 70450; 82570; 83735; 84100; 84156; 87081; 90686; 93005; 96374; 97162; 97530; G0378; J1644; J1940; J2405

== ENCOUNTER 2019-02-05 22:19 | Emergency (ER) | payer MEDICARE, MEDICAID ==
[~2019-02-05] VITALS: Ht 170.2 cm; Wt 69.4 kg
[2019-02-05] MEDS ORDERED: RIVA10 PO (22:31)
[2019-02-05 23:26] LABS: BASOPHILS % (AUTO) 0.3 % (0.0-2.0); EOSINOPHILS % (AUTO) 0 % (1.0-6.0); HEMATOCRIT 42.9 % (36-46); HEMOGLOBIN 13.3 g/dL (12.0-16.0); LYMPHOCYTES # (AUTO) 0.8 K/uL (1.0-4.8); LYMPHOCYTES % (AUTO) 12.1 % (22.0-44.0); MEAN CORPUSCULAR HEMOGLOBIN 24.8 pg (26.0-34.0); MEAN CORPUSCULAR VOLUME 80 fL (80-100); MONOCYTES # (AUTO) 0.4 K/uL (0.1-1.0); MONOCYTES % (AUTO) 5.9 % (2.0-9.0); NEUTROPHILS # (AUTO) 5.4 K/uL (1.8-7.7); NEUTROPHILS % (AUTO) 81.7 % (40.0-70.0); PLATELET COUNT (AUTO) 143 K/uL (150-450); RED BLOOD CELL COUNT(AUTO) 5.38 MIL/uL (4.00-5.20); RED CELL DISTRIBUTION WIDTH 19.6 % (11.5-14.5)
[2019-02-05 23:40] LABS: PROTHROMBIN TIME 10.4 SEC (9.4-11.6)
[2019-02-05 23:41] LABS: ALANINE AMINOTRANSFERASE 9 U/L (12-78); ALKALINE PHOSPHATASE 66 U/L (46-116); ANION GAP 7 mmol/L (8-16); ASPARTATE AMINOTRANSFERASE 18 U/L (15-37); BILIRUBIN,TOTAL 0.5 mg/dL (0.1-1.0); CARBON DIOXIDE 27 mmol/L (22-29); CHLORIDE 112 mmol/L (98-107); CREATININE 1.62 mg/dL (0.60-1.30); GLOMERULAR FILTR. RATE CALC 31 mL/min (>60); GLUCOSE,RANDOM 85 mg/dL (70-110); SODIUM SERUM 146 mmol/L (136-145); TOTAL PROTEIN, SERUM 4.8 g/dL (6.4-8.2)
[2019-02-05 23:43] LABS: POTASSIUM 2.5 mmol/L (3.5-5.1)
[2019-02-05 23:48] LABS: CALCIUM, TOTAL 6.5 mg/dL (8.8-10.5); UREA NITROGEN, BLOOD 24 mg/dL (7-18)
[2019-02-05 23:52] LABS: APPEARANCE,URINE CLEAR (CLEAR); BILIRUBIN,URINE NEGATIVE (NEGATIVE); GLUCOSE, URINE (UA) NEGATIVE (NEGATIVE); KETONES,URINE NEGATIVE (NEGATIVE); LEUKOCYTE ESTERASE ,URINE TRACE (NEGATIVE); NITRATE,URINE NEGATIVE (NEGATIVE); OCCULT BLOOD,URINE TRACE (NEGATIVE); PROTEIN,URINE TRACE (NEGATIVE)
[2019-02-05 23:59] LABS: BACTERIA,URINE None Seen /HPF (None Seen); RBC,URINE 0-2 /HPF (0-2); SQUAMOUS EPITHELIAL CELL,UR Moderate /LPF (None Seen)
[2019-02-06] MEDS ORDERED: POVIDONE-IODINE 10% 15 ML SOLUTION UD ONE (00:26)
[2019-02-06] MEDS ORDERED: POTASSIUM CHLORIDE 20 MEQ ER TABLET PO ONE (00:30)
[2019-02-06] MEDS ORDERED: LIDOCAINE 1% 10 ML VIAL INJ ONE (00:30)
[2019-02-06] MEDS ORDERED: ACETAMINOPHEN 325 MG TABLET PO ONE (00:45)
[2019-02-06] MEDS ORDERED: BACITRACIN 0.9 GM PACKET OINTMENT TP ONE (00:45)
[2019-02-06] MEDS ORDERED: ACETAMINOPHEN 650 MG RECTAL SUPPOSITORY PR ONE (00:45)
[2019-02-06 00:58] LABS: DIGOXIN < 0.20 ng/mL (0.90-2.00)
[2019-02-06 02:36] VITALS: BP 114/73
== END 2019-02-06 02:47 | disposition home or self-care (01) ==
LOC: EMS 22:20
DX: S01.81XA Laceration without foreign body of other part of head, initial encounter (principal); I48.91 Unspecified atrial fibrillation; E87.6 Hypokalemia; F03.90 Unspecified dementia, unspecified severity, without behavioral disturbance, psychotic disturbance, mood disturbance, and anxiety; I11.0 Hypertensive heart disease with heart failure; I50.9 Heart failure, unspecified; Z79.82 Long term (current) use of aspirin; Z79.899 Other long term (current) drug therapy; W06.XXXA Fall from bed, initial encounter; Y93.89 Activity, other specified; Y92.89 Other specified places as the place of occurrence of the external cause; Y99.8 Other external cause status
CPT/HCPCS: 12014; 36415; 70450; 80053; 80162; 81001; 84484; 85025; 85610; 85730; 93005; 99284; J3490